=== PATIENT | female | born 1990 | race Two or more races ===

== ENCOUNTER 2023-09-30 09:31 | Emergency (ER) | payer MEDICAID, SELFPAY ==
--- NOTE | 2023-09-30 | ECG_ITS ---
Test Reason : sob,palpitations Blood Pressure : / mmHG Vent. Rate : 090 BPM Atrial Rate : 090 BPM P-R Int : 138 ms QRS Dur : 076 ms QT Int : 372 ms P-R-T Axes : 056 014 026 degrees QTc Int : 455 ms Normal sinus rhythm Normal ECG No previous ECGs available Referred By: Generic ED Physician Electronically Signed By:GALO DIGGS MD
--- NOTE | ~2023-09-30 | CT_ITS ---
EXAMINATION: CT ANGIOGRAM OF THE CHEST WITH AND WITHOUT CONTRAST (CT PULMONARY ANGIOGRAM FOR PE) CLINICAL INFORMATION: Reason for Exam elevated dimer, R/O PE COMPARISON: Same day chest radiograph TECHNIQUE: Prior to contrast administration, noncontrast localization images were obtained. Subsequently, multidetector volumetric imaging was performed from the thoracic inlet to below the diaphragms following the administration of 65 mL Omnipaque 350 intravenous contrast. No contrast reaction reported Sagittal, coronal, and MIP oblique sagittal reformatted images were obtained on the CT workstation, uploaded to PACS, and reviewed. This CT examination was performed using dose optimization techniques as appropriate, variously including the following: *Automated exposure control *Adjustment of mA and/or kV according to patient size (this includes techniques or standardized protocols for targeted exams where dose is matched to indication/reason for exam; i.e. extremities or head) *Use of iterative reconstruction technique Total exam dose-length product 221 mGy-cm FINDINGS: SYSTEMS INTEGRATION ADVISOR: Clear lungs. QUALITY OF STUDY/CONTRAST BOLUS: Satisfactory. PULMONARY ARTERIES: No pulmonary emboli. THORACIC AORTA: No aneurysm. LUNGS: Trachea and bronchi are patent. No consolidations, groundglass opacities or suspicious lung nodules. Mild dependent atelectasis. PLEURA: No pleural effusion or pneumothorax. MEDIASTINUM: Normal heart size. No pericardial effusion. No hilar or mediastinal lymphadenopathy. No evidence of septal bowing or right heart strain. CORONARY ARTERY CALCIFICATION: None visualized on this study. CHEST WALL/AXILLA: No axillary or internal mammary lymphadenopathy. Inverted right nipple, correlate clinically. OSSEOUS STRUCTURES: No acute or suspicious osseous abnormality. UPPER ABDOMEN: Enlarged low density liver CT/CT angio chest PE protocol IMPRESSION: No CT evidence of pulmonary thromboembolism. Enlarged fatty liver. VTE: negative
--- NOTE | ~2023-09-30 | XR_ITS ---
STUDY: Chest, left rib series, left foot and ankle INDICATION: Left chest pain, foot and ankle pain after fall COMPARISON: None TECHNIQUE: PA chest, 3 view left rib series, 3 view left foot, 3 view left ankle FINDINGS: Chest and left RIBS: Heart, mediastinum, pulmonary vessels and lung lebron within normal limits. No effusions or pneumothorax. 2 radiopaque densities are identified in the left lateral upper abdominal soft tissues but no displaced rib fractures are seen. Left left foot and ankle: No fracture or dislocation. Mortise is intact. Alignment and articulations are maintained. No focal soft tissue swelling, fracture or dislocation. XR/XR ankle LT min 3V IMPRESSION: No acute cardiopulmonary disease. 2 adjacent densities in the upper lateral abdominal soft tissues have densities similar to bone, but biopsy adjacent ribs appear intact with no evidence of displaced fractures. Correlate clinically. No acute bony pathology left foot and ankle.
--- NOTE | ~2023-09-30 | XR_ITS ---
STUDY: Chest, left rib series, left foot and ankle INDICATION: Left chest pain, foot and ankle pain after fall COMPARISON: None TECHNIQUE: PA chest, 3 view left rib series, 3 view left foot, 3 view left ankle FINDINGS: Chest and left RIBS: Heart, mediastinum, pulmonary vessels and lung lebron within normal limits. No effusions or pneumothorax. 2 radiopaque densities are identified in the left lateral upper abdominal soft tissues but no displaced rib fractures are seen. Left left foot and ankle: No fracture or dislocation. Mortise is intact. Alignment and articulations are maintained. No focal soft tissue swelling, fracture or dislocation. XR/XR foot LT min 3V IMPRESSION: No acute cardiopulmonary disease. 2 adjacent densities in the upper lateral abdominal soft tissues have densities similar to bone, but biopsy adjacent ribs appear intact with no evidence of displaced fractures. Correlate clinically. No acute bony pathology left foot and ankle.
--- NOTE | ~2023-09-30 | XR_ITS ---
STUDY: Chest, left rib series, left foot and ankle INDICATION: Left chest pain, foot and ankle pain after fall COMPARISON: None TECHNIQUE: PA chest, 3 view left rib series, 3 view left foot, 3 view left ankle FINDINGS: Chest and left RIBS: Heart, mediastinum, pulmonary vessels and lung lebron within normal limits. No effusions or pneumothorax. 2 radiopaque densities are identified in the left lateral upper abdominal soft tissues but no displaced rib fractures are seen. Left left foot and ankle: No fracture or dislocation. Mortise is intact. Alignment and articulations are maintained. No focal soft tissue swelling, fracture or dislocation. XR/XR ribs LT min 3V w CXR1V IMPRESSION: No acute cardiopulmonary disease. 2 adjacent densities in the upper lateral abdominal soft tissues have densities similar to bone, but biopsy adjacent ribs appear intact with no evidence of displaced fractures. Correlate clinically. No acute bony pathology left foot and ankle.
[2023-09-30 09:33] VITALS: BP 126/80; PULSE 109; RESP 20; TEMP 36.2; O2SAT 98; BMI 40.0
--- NOTE | 2023-09-30 09:44 | ED.GENADULT ---
HPI - General Adult General Chief complaint: General Medical Stated complaint: Chest pain/Fall last week Time Seen by Provider: 09/30/23 09:44 Source: patient and plain goods hemmer (kazakh) Mode of arrival: ambulatory Limitations: language barrier (kazakh) History of Present Illness ED Provider: SHELBY ALVAREZ PA-C HPI narrative: 33 year old female with no significant pmhx presents to the ED today for evaluation of left ankle pain s/p trip and fall 1 week ago. Reports rolling her ankle inward. Now has continued pain and swelling to the inner aspect of left ankle. Taking Tylenol at home with minimal relief. Last dose two days ago. She has been able to ambulate on the LLE with some discomfort. Denies fever/ chills, numbness/tingling/weakness of the LEs. Additionally, patient reports left sided chest pain x4-6 months with associated shortness of breath and palpitations, only present on lying down at night. She endorses left calf cramping x1 month. Denies recent travel or long car rides. Denies OCP use. admits to increased life stressors however does not wish to discuss. Reports following up with her PCP 12 days ago regarding these symptoms. At the time, she was diagnosed with iron deficiency anemia and has been taking iron supplements at home as directed. automatic shirring machine operator utilized throughout visit to communicate with patient. Related Data Previous Rx's ?Medication ?Instructions ?Recorded compression panty, 1x-2x #1 ea 09/30/23 naproxen 500 mg tablet 500 mg PO Q8-12H PRN pain (scale 09/30/23 score 1-3) #20 tabs Allergies Allergy/AdvReac Type Severity Reaction Status Date / Time No Known Allergies Allergy Verified 09/30/23 09:36 Review of Systems Review of Systems: Constitutional: No fever, chills, fatigue, night sweats, weight changes ENT/Mouth: No ear pain, hearing loss, nasal congestion, sinus pain, rhinorrhea, sore throat Eyes: No eye pain, swelling, redness, vision changes, discharge Cardio: No palpitations, [place], orthopnea, peripheral edema, +chest pain Pulm: No SOB, cough, sputum, wheezing, dyspnea, hemoptysis GI: No nausea, vomiting, hematemesis, abdominal pain, diarrhea, constipation, hematochezia, melena : No irregular bleeding, dysuria, frequency, urgency, hesitancy, hematuria, flank pain, urinary flow changes, urinary incontinence or retention MSK: No back pain, neck pain, joint pain, myalgias, +left ankle/ foot pain Skin: No lesions, rashes Neuro: No weakness, numbness, paresthesias, LOC, dizziness, headache Psych: No anxiety/panic, depression, SI/HI, AH/VH All other systems reviewed and are negative. [facility] Past Medical History Attestation statement: The following information was validated with the patient. Source: old records reviewed and nursing notes reviewed Social History Social History Smoked in Last 30 Days: No Advance Directives: No Advance Directives Information Provided: No Physical Exam ED Vital Signs: Vital Signs - 24 hr 09/30/23 09:33 09/30/23 11:30 09/30/23 13:12 Temperature 97.1 F 97.8 F 97.9 F Pulse Rate 109 H 68 65 Respiratory Rate 20 18 18 Blood Pressure 126/80 129/71 128/72 Pulse Oximetry 98 100 98 Oxygen Delivery Method Room Air Room Air Room Air 09/30/23 13:13 Temperature 97.9 F Pulse Rate 68 Respiratory Rate 18 Blood Pressure 128/72 Pulse Oximetry 98 Oxygen Delivery Method Room Air BMI result Body Mass Index 40.0 Const General: cooperative, healthy appearing, comfortable and no acute distress Orientation/consciousness: patient oriented x3 Limitations: no limitations [facility] Head: Yes normal to inspection, Yes No palpable skull fracture present, Yes normocephalic and Yes atraumatic Eyes General: appearance normal, both eyes and all related structures Conjunctivae: conjunctivae normal Sclerae: sclerae normal Pupils: Equal, round and reactive pupils present EOM: EOMs intact bilaterally Neck Neck: Yes normal visual inspection, Yes full ROM, Yes no lymphadenopathy and Yes no JVD Chest Chest palpation & inspection: normal inspection of the chest and normal palpation of entire chest wall Resp Effort & Inspection: normal respiratory effort and able to speak in complete sentences Auscultation: clear to auscultation bilaterally Cardio Jugular venous distension: no JVD Rate: regular rate Rhythm: regular rhythm GI Inspection: Yes normal to inspection Skin General skin exam: no rashes or lesions noted Neuro General: patient oriented x3 and gait normal Cranial nerves: Yes Equal, round and reactive pupils present Extrem Other: + noted swelling to medial aspect of left ankle with small area of ecchymosis. FROM intact to left ankle. no tenderness to palpation. no crepitus, fluctuance or warmth. no palpable deformity. 2+ dp/pt pulse intact. no calf tenderness bilatearlly. bilateral nonpitting edema. ambulating with steady gait. Course Course Course Narrative: CBC without leukocytosis or left shift. No anemia, H&H stable. Chemistry without acute electrolyte abnormality requiring intervention. Beta hCG undetectable. EKG showing NSR without evidence of acute ischemic changes. troponin flat. Given chronicity of symptoms > ACS unlikely. Given patient tachycardic on initial VS, cannot exclude PE. PERC 1. Dimer ordered. BNP wnl, no concern for fluid overload. 1104-- ddimer elevated to 1207 > Findings discussed with patient. CTA chest ordered to r/o PE. > xr left foot/ ankle without fracture or malalignment. > XR ribs w/ chest unremarkable. 1207-- CTA chest without evidence of VTE. There are incidental findings of enlarged fatty liver. Findings of elevated ddimer are nonspecific however may be related to chronic fatty liver. > I discussed all findings with patient. Etiology of patient's chest pain is unclear. advised follow up with pcp. will provide referral to classified copy control clerk for outpatient follow up. Patient has remained stable throughout ED visit today. Discussed worrisome signs and symptoms and when to return to the ED. All questions answered at this time. Patient is agreeable with disposition and stable for discharge. Medications Administered Discontinued Medications Generic Name Dose Route Start Last Admin Trade Name Freq PRN Reason Stop Dose Admin Sodium Chloride 1,000 mls @ 999 mls/hr 09/30/23 11:45 09/30/23 13:14 Ns IV 09/30/23 12:45 Infused .Q1H1M BUZZ Infusion Iohexol 65 ml 09/30/23 11:43 09/30/23 11:43 Iohexol 350 Mg/Ml 100 Ml Infus..Btl IV 09/30/23 11:44 65 ml ONCE ONE Administration Ketorolac Tromethamine 15 mg 09/30/23 11:25 09/30/23 11:31 Ketorolac Tromethamine 15 Mg/Ml Vial IVPUSH 09/30/23 11:26 15 mg ONCE ONE Administration Medical Decision Making Medical Decision Making MDM Narrative: 33 year old female with no significant pmhx presents to the ED today for evaluation of left ankle pain s/p trip and fall 1 week ago. Tachycardic to 109, vitals otherwise wnl. She is nontoxic appearing and in NAD. On exam of LLE, noted swelling to medial aspect of left ankle with small area of ecchymosis. FROM intact to left ankle. no tenderness to palpation. no crepitus, fluctuance or warmth. no palpable deformity. 2+ dp/pt pulse intact. no calf tenderness bilatearlly. bilateral nonpitting edema. ambulating with steady gait. RRR. Lungs are CTA bilaterally. Differential diagnosis includes ACS, arrhythmia, costochondritis, pleuritis, msk sprain/ strain, viral syndrome, pneumonia, ankle sprain/ strain, fracture. Lower suspicion for PE, effusion, rupture aneurysm, compartment syndrome, NV compromise, threat to limb. Plan for labs, ekg, cxr, and re-evaluation. Differential Diagnosis Differential Diagnoses: The differential diagnosis associated with the presentation includes as above. Admission/Observation Not indicated. Lab Data [facility] Lab Attestation statement: I reviewed the patient's lab results. as above. 09/30/23 09:47 09/30/23 09:47 Labs: Lab Results 09/30/23 09/30/23 Range/Units 09:47 10:35 WBC 9.6 (4.8-10.8) X10*3/uL RBC 4.68 (4.20-5.50) X10*6/uL Hgb 12.7 (12.0-16.0) g/dl Hct 39.0 (37.0-47.0) % MCV 83.3 (80.0-98.0) fL MCH 27.1 (27.0-33.0) pg MCHC 32.6 (31.0-35.0) g/dl RDW 15.9 (11.0-16.0) % Plt Count 336 (160-400) X10*3/uL MPV 9.7 (9.4-12.3) fL Immature Gran % (Auto) 0.5 H (0.0-0.4) % Neut % (Auto) 66.3 (45-73) % Lymph % (Auto) 23.1 (20-40) % [place] % (Auto) 8.9 (2-11) % Eos % (Auto) 0.7 (0-4) % Baso % (Auto) 0.5 (0-2) % Lymph # (Auto) 2.2 (1.2-4.9) X10*3/uL [place] # (Auto) 0.9 (0.1-1.2) X10*3/uL Eos # (Auto) 0.1 (0.0-0.4) X10*3/uL Baso # (Auto) 0.1 (0.0-0.2) X10*3/uL Abs Immat Gran (auto) 0.05 H (0.00-0.03) X10*3/uL Absolute Neuts (auto) 6.3 (2.0-8.3) x10*3/uL Absolute Nucleated RBC 0.000 (0.0-0.012) X10*3/uL Nucleated RBC % (auto) 0.0 (0.0-0.2) /100WBC D-Dimer High Sensitivty 1207 NG/ML Sodium 141 (135-145) mmol/L Potassium 4.5 (3.3-5.1) mmol/L Chloride 108 (96-108) mmol/L Carbon Dioxide 21 L (22-29) mmol/L Anion Gap 17 (12-20) BUN 21 H (9-16) mg/dL Creatinine 1.03 (0.5-1.4) mg/dL Estim Creat Clear Calc 79.1 Estimated GFR > 60 Random Glucose 86 (60-115) mg/dL Calcium 9.7 (8.4-10.2) mg/dL Magnesium 1.9 (1.6-2.6) mg/dL Troponin I High Sens < 2.7 (<3.5-17.0) ng/L B-Natriuretic Peptide < 10 (<100) pg/mL Beta HCG, Quant < 2 mIU/mL Independent Interpretation I performed an independent interpretation of an: EKG, Plain X-Ray and CT Scan Interpretation: EKG showing normal sinus rhythm with a rate of 90 beats per minute, QT 372, QTC 455, no acute ischemic changes or ST elevations. XR left ribs without obvious rib fracture, no consolidation or infiltrate, agree with radiologist's interpretation XR left ankle/ foot without fracture, agree with radiologist's interpretation. CTA chest with clot, agree with radiologist's interpretation. Radiology Impression Discussion of test interpretation with radiology: I have reviewed the radiologist's reading. Radiologist Impression: EXAMINATION: CT ANGIOGRAM OF THE CHEST WITH AND WITHOUT CONTRAST (CT PULMONARY ANGIOGRAM FOR PE) CLINICAL INFORMATION: Reason for Exam elevated dimer, R/O PE COMPARISON: Same day chest radiograph TECHNIQUE: Prior to contrast administration, noncontrast localization images were obtained. Subsequently, multidetector volumetric imaging was performed from the thoracic inlet to below the diaphragms following the administration of 65 mL Omnipaque 350 intravenous contrast. No contrast reaction reported Sagittal, coronal, and MIP oblique sagittal reformatted images were obtained on the CT workstation, uploaded to PACS, and reviewed. This CT examination was performed using dose optimization techniques as appropriate, variously including the following: *Automated exposure control *Adjustment of mA and/or kV according to patient size (this includes techniques or standardized protocols for targeted exams where dose is matched to indication/reason for exam; i.e. extremities or head) *Use of iterative reconstruction technique Total exam dose-length product 221 mGy-cm FINDINGS: RECESSING MACHINE OPERATOR: Clear lungs. QUALITY OF STUDY/CONTRAST BOLUS: Satisfactory. PULMONARY ARTERIES: No pulmonary emboli. THORACIC AORTA: No aneurysm. LUNGS: Trachea and bronchi are patent. No consolidations, groundglass opacities or suspicious lung nodules. Mild dependent atelectasis. PLEURA: No pleural effusion or pneumothorax. MEDIASTINUM: Normal heart size. No pericardial effusion. No hilar or mediastinal lymphadenopathy. No evidence of septal bowing or right heart strain. CORONARY ARTERY CALCIFICATION: None visualized on this study. CHEST WALL/AXILLA: No axillary or internal mammary lymphadenopathy. Inverted right nipple, correlate clinically. OSSEOUS STRUCTURES: No acute or suspicious osseous abnormality. UPPER ABDOMEN: Enlarged low density liver CT/CT angio chest PE protocol IMPRESSION: No CT evidence of pulmonary thromboembolism. Enlarged fatty liver. VTE: negative STUDY: Chest, left rib series, left foot and ankle INDICATION: Left chest pain, foot and ankle pain after fall COMPARISON: None TECHNIQUE: PA chest, 3 view left rib series, 3 view left foot, 3 view left ankle FINDINGS: Chest and left RIBS: Heart, mediastinum, pulmonary vessels and lung lebron within normal limits. No effusions or pneumothorax. 2 radiopaque densities are identified in the left lateral upper abdominal soft tissues but no displaced rib fractures are seen. Left left foot and ankle: No fracture or dislocation. Mortise is intact. Alignment and articulations are maintained. No focal soft tissue swelling, fracture or dislocation. XR/XR ribs LT min 3V w CXR1V IMPRESSION: No acute cardiopulmonary disease. 2 adjacent densities in the upper lateral abdominal soft tissues have densities similar to bone, but biopsy adjacent ribs appear intact with no evidence of displaced fractures. Correlate clinically. No acute bony pathology left foot and ankle. Independent Historian Clinical information obtained from an independent historian. History obtained from or confirmed by: Spouse () External Record Review External record reviewed: Inpatient record Prescription Management I considered prescription management with: Pain Medication Social Determinants Patient?s care significantly limited by Social Determinants of Health including: Other Social Determinant of Health Critical Care Time Critical Care Time Critical Care Time: No Discharge Plan Discharge Clinical Impression: Atypical chest pain, Left ankle sprain, Elevated d-dimer, Fatty liver Patient Disposition: Home, Self-Care Instructions: Liver Disease Diet (DC) Additional Instructions: Your blood work today is reassuring. Your xrays are unremarkable. Your EKG is normal. The CT scan of your chest does not demonstrate clot. It does show incidental finding of fatty liver. Please see attached instructions for appropriate diet changes. You may also follow up with your PCP regarding these findings. You likely have an ankle sprain. You were provided with an Antwan wrap for compression. Utilize rice therapy- rest, ice, compress, elevate. Compression stockings have also been sent to the pharmacy for you to wear while you are up and walking to help with your lower leg swelling. Naproxen is an anti-inflammatory that has been sent to your pharmacy for you to take as needed for pain/discomfort. Do not take this with other NSAIDs such as Motrin as this may cause increased risk of GI bleeding. Follow up with your primary care provider. Return with new or worsening symptoms. In the case of an emergency call 911. Prescriptions: New naproxen 500 mg tablet 500 mg PO Q8-12H PRN (Reason: pain (scale score 1-3)) Qty: 20 0RF (DME) compression panty, 1x-2x Misc See Rx Instructions .Route Qty: 1 0RF Rx Instructions: As directed Referrals: Adriana Arriaga NP [Primary Care Provider] - Interventions: ED Discharge Assessment Last Done: 09/30/23 13:13 Discharge Date/Time: 09/30/23 13:14 Print Language: [place]
[2023-09-30 09:52] LABS: MANUAL DIFF FLAG NO
[2023-09-30 09:54] LABS: Basophils Absolute Auto 0.1 X10*3/uL (0.0-0.2); Basophils Percent Auto 0.5 % (0-2); Eosinophils Absolute Auto 0.1 X10*3/uL (0.0-0.4); Eosinophils Percent Auto 0.7 % (0-4); Hemoglobin 12.7 g/dl (12.0-16.0); Imm Gran Abs Auto 0.05 X10*3/uL (0.00-0.03); Imm Gran Pct Auto 0.5 % (0.0-0.4); Lymphocytes Absolute Auto 2.2 X10*3/uL (1.2-4.9); Lymphocytes Percent Auto 23.1 % (20-40); Mean Corpuscular HGB Conc 32.6 g/dl (31.0-35.0); Mean Corpuscular Hemoglobin 27.1 pg (27.0-33.0); Mean Corpuscular Volume 83.3 fL (80.0-98.0); Mean Platelet Volume 9.7 fL (9.4-12.3); Monocytes Absolute Auto 0.9 X10*3/uL (0.1-1.2); Monocytes Percent Auto 8.9 % (2-11); Neutrophils Absolute Auto 6.3 x10*3/uL (2.0-8.3); Neutrophils Percent Auto 66.3 % (45-73); Platelet Count 336 X10*3/uL (160-400); Red Blood Count 4.68 X10*6/uL (4.20-5.50); Red Cell Distribution Width 15.9 % (11.0-16.0); White Blood Count 9.6 X10*3/uL (4.8-10.8)
--- NOTE | 2023-09-30 10:24 | PC.NURSE ---
Pt comes from home for rolling her ankle a week ago walking home from the [employer]. She has been walking on it for the past week, able to flex and extend the ankle. + pedal pulses, swelling noted in her left ankle/foot and bruising. She stated she was able to walk home on the ankle but the next day was unable to bare weight. She is also endorsing chest pain with SOB and calf pain that started before the fall. She states the calf pain feels like cramping and shes had it for about 2 months now. She also states the chest pain started 4-6 months ago but was worse last night, nothing makes the chest pain better/worse it's constant. Denies n/v/dizziness, she has been taking naproxen for her ankle pain, last dose was last sunday. Significant other at bedside, resting quietly in bed, call kinsey within reach, awaiting further orders at this time.
--- NOTE | 2023-09-30 10:32 | PC.NURSE ---
Pt comes from home for rolling her ankle a week ago walking home from the [employer]. She has been walking on it for the past week, able to flex and extend the ankle. + pedal pulses, swelling noted in her left ankle/foot and bruising. She stated she was able to walk home on the ankle but the next day was unable to bare weight. She is also endorsing chest pain with SOB and calf pain that started before the fall. She states the calf pain feels like cramping and shes had it for about 2 months now. She also states the chest pain started 4-6 months ago but was worse last night, nothing makes the chest pain better/worse it's constant. Denies n/v/dizziness, she has been taking tylenol for her ankle pain, last dose was last sunday. Significant other at bedside, resting quietly in bed, call kinsey within reach, awaiting further orders at this time.
[2023-09-30 10:47] LABS: Anion Gap 17 (12-20); Blood Urea Nitrogen 21 mg/dL (9-16); Calcium 9.7 mg/dL (8.4-10.2); Carbon Dioxide 21 mmol/L (22-29); Chloride 108 mmol/L (96-108); Creatinine Clr Calc Pharmacy 79.1; Estimated Glomerular Filt Rate > 60; Glucose Random 86 mg/dL (60-115); Magnesium 1.9 mg/dL (1.6-2.6); Potassium 4.5 mmol/L (3.3-5.1); Sodium 141 mmol/L (135-145)
[2023-09-30 10:50] LABS: D Dimer High Sensitivity 1207 NG/ML
[2023-09-30 10:50] LABS: HCG Quantitative < 2 mIU/mL; Troponin-I High Sensitivity < 2.7 ng/L (<3.5-17.0)
[2023-09-30 11:30] VITALS: BP 129/71; PULSE 68; RESP 18; TEMP 36.6; O2SAT 100
[2023-09-30] MEDS: Ketorolac Tromethamine 15 MG/ML VIAL IVPUSH (11:31)
[2023-09-30 11:36] LABS: B Type Natriuretic Peptide < 10 pg/mL (<100)
[2023-09-30] MEDS: iohexoL 350 MG/ML 100 ML INFUS..BTL 65 ML IV (11:43)
[2023-09-30] MEDS: 0.9 % Sodium Chloride 1,000 ML 999 ML IV (11:50)
[2023-09-30 13:12] VITALS: BP 128/72; PULSE 65; RESP 18; TEMP 36.6; O2SAT 98
[2023-09-30 13:13] VITALS: BP 128/72; PULSE 68; RESP 18; TEMP 36.6; O2SAT 98
== END 2023-09-30 13:14 | disposition home or self-care (01) ==
PROVIDERS: Physician Assistant Medical; Emergency Provider Emergency Medicine; PCP Nurse Practitioner
DX: S93.402A Sprain of unspecified ligament of left ankle, initial encounter (principal); R07.81 Pleurodynia; M25.572 Pain in left ankle and joints of left foot; K76.0 Fatty (change of) liver, not elsewhere classified; R06.02 Shortness of breath; R07.89 Other chest pain; R00.2 Palpitations; D50.9 Iron deficiency anemia, unspecified; W50.2XXA Accidental twist by another person, initial encounter; Y93.01 Activity, walking, marching and hiking; Y92.9 Unspecified place or not applicable; Y99.8 Other external cause status; Z79.899 Other long term (current) drug therapy
CPT/HCPCS: 36415; 71101; 71275; 73610; 73630; 80048; 83735; 83880; 84484; 84702; 85025; 85379; 93005; 96360; 96372; 99284; 99285; J1885; Q9967

== ENCOUNTER → 2023-09-30 09:39 | Outpatient (BNV) | payer MEDICAID, SELFPAY | PROVIDERS: Emergency Provider Emergency Medicine; PCP Nurse Practitioner; Visit Provider Internal Medicine Cardiovascular Disease | DX: R00.2 Palpitations (principal); R06.02 Shortness of breath | CPT/HCPCS: 93010 ==

== ENCOUNTER 2023-11-18 15:23 | Emergency (ER) | payer MEDICAID, SELFPAY ==
[2023-11-18 16:02] VITALS: BP 120/77; PULSE 111; RESP 18; TEMP 37.1; O2SAT 100; BMI 40.2
--- NOTE | 2023-11-18 16:02 | ED_ITS ---
HPI - URI/Sore Throat General Chief Complaint: Upper Respiratory Symptoms Stated Complaint: feels sick Time Seen by Provider: 11/18/23 18:15 Source: patient, RN notes reviewed and old records reviewed Mode of arrival: ambulatory History of Present Illness ED Provider: Melissa Ward PA-C [facility] Narrative: 33-year-old female with no significant past medical history presenting to the ED complaining of sore throat x yesterday, aches/myalgias, congestion, cough, chills, and headache x today. Denies fever, sick contacts, travel SOB/CP Related Data Previous Rx's ?Medication ?Instructions ?Recorded compression panty, 1x-2x #1 ea 09/30/23 naproxen 500 mg tablet 500 mg PO Q8-12H PRN pain (scale 09/30/23 score 1-3) #20 tabs Allergies Allergy/AdvReac Type Severity Reaction Status Date / Time No Known Allergies Allergy Verified 11/18/23 16:07 Review of Systems Review of Systems: Yes all other systems are reviewed and are negative Constitutional: Constitutional: Reports as per [facility] Past Medical History Attestation statement: The following information was validated with the patient. Source: old records reviewed Social History Social History Advance Directives: No Advance Directives Information Provided: No Physical Exam Vital Signs: Vital Signs: Last Vital Signs Temp 99 F 11/18/23 18:50 Pulse 88 11/18/23 18:50 Resp 19 11/18/23 18:50 BP 124/88 11/18/23 18:50 Pulse Ox 97 11/18/23 18:50 O2 Del Method Room Air 11/18/23 18:50 BMI result Body Mass Index 40.2 Const: General: cooperative, healthy appearing and no acute distress Orientation/consciousness: patient oriented x3 Limitations: no limitations HEENT: Head: Yes normal to inspection and Yes atraumatic Ears: hearing grossly normal bilaterally General nose exam: Normal external nose present Face and sinus: Yes normal facial exam Eyes: General: appearance normal, both eyes and all related structures EOM: EOMs intact bilaterally Neck: Neck: Yes normal visual inspection and Yes no meningeal signs Resp: Effort & Inspection: normal respiratory effort and no respiratory distress Auscultation: clear to auscultation bilaterally Cardio: Rate: regular rate Heart sounds: S1 normal heart sound present and S2 normal heart sound present Skin: Rashes: no rashes Wounds: no wounds Neuro: General: patient oriented x3, tone normal and no meningeal signs C ranial nerves: Yes CN's II-XII intact bilaterally Gait exam (Neuro): Normal gait present Extrem: General: Yes normal to inspection Course Course Course Narrative: This is a Rapid Medical Exam performed in triage by Melissa Ward PA-C. Full HPI, ROS and PE to be performed by primary ED provider. 33 yo F presenting to the ED c/o sore throat x yesterday and body aches, congestion, cough, chills and WATKINS x today. denies fever, sick contacts, travel PE: lungs CTA, mild posterior oropharyngeal erythema, uvula midline, no exudates Plan: viral testing, rapid strep -COVID-19 positive Results discussed with patient including worrisome signs and symptoms and strict return precautions, and when to return to the emergency department. They verbalized understanding and feel safe for discharge at this time. Medical Decision Making Medical Decision Making MDM Narrative: 33-year-old female with no significant past medical history presenting to the ED complaining of sore throat x yesterday, aches/myalgias, congestion, cough, chills, and headache x today. On exam initially tachycardic, NAD, nontoxic appearing lungs CTA, mild posterior oropharyngeal erythema, uvula midline, talking complete sentences. Concern for viral illness or strep pharyngitis heard no evidence of RESEARCH TECH or retropharyngeal abscess. Lower suspicion for pneumonia, ACS or PE Plan: Rapid strep, viral testing Please refer to course for remaining clinical decision making, interpretation of labs/imaging results, and discussions with consultants and/or family members. Differential Diagnosis Differential Diagnoses: The differential diagnosis associated with the presentation includes As above Lab Data MDM Lab Attestation statement: I reviewed the patient's lab results. Labs: Lab Results 11/18/23 Range/Units 17:32 Influenza Type A (PCR) NEGATIVE (Negative) Influenza Type B (PCR) NEGATIVE (Negative) RSV RNA Qual (PCR) NEGATIVE (Negative) SARS-CoV-2 RNA (RT-PCR) POSITIVE A (Negative) S. pyogenes GrpA SVITLANA Negative (Negative) External Record Review External record reviewed: Inpatient record, Office record, Outpatient record, Prior outpatient labs, Prior outpatient radiology, Primary care record and Outside ED record Tests considered The following testing was considered but not selected: As above Discharge Plan Discharge Clinical Impression: COVID-19 Patient Disposition: Home, Self-Care Instructions: COVID-19 (Coronavirus Disease 2019) (ED) Additional Instructions: YOU HAVE COVID-19 At this time you will be okay for discharge. Please self isolate for 5 days. Do not expose yourself to others. You may not go to work or school. Please continue to follow cold instructions and wash your hands frequently. You may take Tylenol / Motrin as directed on the bottle for pain or fever. If you have constant or persistent shortness of breath, fever unresolved with medications, chest pain, or your unable to eat or drink please return to the ED CDC Guidelines for home isolation: - Stay away from others - WEAR A MASK if you are sick AND STAY HOME - Cover your mouth and nose with a tissue when you cough or sneeze. Dispose of tissues in a lined trash can and wash your hands immediately with soap and water for at least 20 seconds. If soap and water are not available, clean hands with alcohol-based hand wildlife conservation professor that contains at least 60% alcohol. - Clean your hands often with soap and water for at least 20 seconds - Avoid touching your eyes, nose and mouth with unwashed hands - Do not share dishes, drinking glasses, cups, eating utensils, towels, or bedding with other people in your home. After using these items, wash them thoroughly with soap and water or put in the check grader. - Clean high-touch surfaces in your isolation area ( sick room and bathroom) every day; let a caregiver clean and disinfect high-touch surfaces in other areas of the home. Clean the area or item with soap and water or another detergent if it is dirty. Then, use a household disinfectant. - Limit contact with pets and animals: If you must care for a pet, wash your hands before and after interacting with them) Prescriptions: No Action naproxen 500 mg tablet 500 mg PO Q8-12H PRN (Reason: pain (scale score 1-3)) Qty: 20 0RF (DME) compression panty, 1x-2x Misc See Rx Instructions .Route Qty: 1 0RF Rx Instructions: As directed Referrals: Adriana Arriaga NP [Primary Care Provider] - Stand Alone Forms: Work/School Release Interventions: ED Discharge Assessment Last Done: 11/18/23 18:50 Discharge Date/Time: 11/18/23 18:51 Print Language: Wallisian
[2023-11-18 17:50] LABS: IDNOW Serial# 08D9AD1C; Strep A Nucleic Acid Negative (Negative)
[2023-11-18 18:15] LABS: Influenza A PCR NEGATIVE (Negative); Influenza B PCR NEGATIVE (Negative); Resp Syncy Virus RNA Qual PCR NEGATIVE (Negative); SARS COV2 PCR INHOUSE POSITIVE (Negative)
[2023-11-18 18:49] VITALS: BP 124/88; PULSE 88; RESP 19; TEMP 37.2; O2SAT 97
[2023-11-18 18:50] VITALS: BP 124/88; PULSE 88; RESP 19; TEMP 37.2; O2SAT 97
== END 2023-11-18 18:51 | disposition home or self-care (01) ==
PROVIDERS: Physician Assistant; Emergency Provider Emergency Medicine Emergency Medical Services; PCP Nurse Practitioner
DX: U07.1 COVID-19 (principal); J02.9 Acute pharyngitis, unspecified
CPT/HCPCS: 0241U; 87651; 99282

== ENCOUNTER 2023-12-05 15:00 | Emergency (ER) | payer MEDICAID, SELFPAY ==
--- NOTE | 2023-12-05 15:01 | ECG_ITS ---
Test Reason : CHEST PAIN Blood Pressure : / mmHG Vent. Rate : 088 BPM Atrial Rate : 088 BPM P-R Int : 140 ms QRS Dur : 078 ms QT Int : 366 ms P-R-T Axes : 057 014 013 degrees QTc Int : 442 ms Normal sinus rhythm Normal ECG When compared with ECG of 30-SEP-2023 09:39, No significant change was found Referred By: Cielo Tsai Electronically Signed By:BREEZY HUBBARD
--- NOTE | 2023-12-05 15:17 | ED_ITS ---
HPI - General Adult General Chief complaint: Chest Pain Stated complaint: CP Time Seen by Provider: 12/06/23 02:02 Source: patient Mode of arrival: ambulatory Limitations: no limitations History of Present Illness ED Provider: martha VENTURA narrative: Patient no significant past medical history complaining of left-sided chest pain on the breast for last few days reproducible increases on movement vomited 3 times today Related Data Previous Rx's ?Medication ?Instructions ?Recorded compression panty, 1x-2x #1 ea 09/30/23 naproxen 500 mg tablet 500 mg PO Q8-12H PRN pain (scale 09/30/23 score 1-3) #20 tabs ibuprofen 600 mg tablet 600 mg PO Q6H PRN fever or pain 12/06/23 #30 tabs Allergies Allergy/AdvReac Type Severity Reaction Status Date / Time No Known Allergies Allergy Verified 12/05/23 15:20 Review of Systems 2 Review of Systems: Yes all other systems are reviewed and are negative PMFSH Social History Social History Advance Directives: No Advance Directives Information Provided: No Physical Exam ED Vital Signs: BMI result Body Mass Index 38.7 Appearance: Alert. Oriented X3. No acute distress. Eyes: PERRLA, No Nystagmus ENT: Pharynx normal. Oral Mucosa moist Neck: Normal inspection. Neck supple. CVS: Normal heart rate and rhythm. Pulses normal. Respiratory: No respiratory distress. Equal air entry bilateral, no wheezing/rales/rhonchi reproducible tenderness left anterior chest Abdomen: Soft and nontender. Bowel sounds are present, no mass palpable, no CVA tenderness Skin: Skin warm and dry. Normal skin color. Normal skin turgor. Extremities: No lower extremity edema. No calf tenderness Neuro: Oriented X 3. No motor deficit. No sensory deficit.No cerebellar signs , cranial nerves II-XII intact Course Course Course Narrative: This is a rapid medical exam performed by Claribel Tsai NP: Additional HPI, ROS, PE not included below will be deferred to primary provider. Patient is a 33-year-old female presenting to the ED with complaint of constant chest pain under left breast which began yesterday. At times palpitations with ambulation. Plan: EKG, labs Medications Administered Discontinued Medications Generic Name Dose Route Start Last Admin Trade Name Freq PRN Reason Stop Dose Admin Ibuprofen 600 mg 12/06/23 02:24 12/06/23 03:28 Ibuprofen 600 Mg Tablet PO 12/06/23 02:25 600 mg ONCE ONE Administration Medical Decision Making Medical Decision Making [facility] Narrative: Patient has atypical musculoskeletal chest pain heart score of 0 cardiac enzymes and EKG negative will discharge patient home Differential Diagnosis Differential Diagnoses: The differential diagnosis associated with the presentation includes Lab Data [facility] Lab Attestation statement: I reviewed the patient's lab results. 12/05/23 16:36 12/05/23 16:36 Labs: Lab Results 12/05/23 Range/Units 16:36 WBC 10.6 (4.8-10.8) X10*3/uL RBC 5.04 (4.20-5.50) X10*6/uL Hgb 13.5 (12.0-16.0) g/dl Hct 41.7 (37.0-47.0) % MCV 82.7 (80.0-98.0) fL MCH 26.8 L (27.0-33.0) pg MCHC 32.4 (31.0-35.0) g/dl RDW 15.7 (11.0-16.0) % Plt Count 463 H D (160-400) X10*3/uL MPV 9.5 (9.4-12.3) fL Immature Gran % (Auto) 0.4 (0.0-0.4) % Neut % (Auto) 70.3 (45-73) % Lymph % (Auto) 20.4 (20-40) % [place] % (Auto) 7.4 (2-11) % Eos % (Auto) 0.9 (0-4) % Baso % (Auto) 0.6 (0-2) % Lymph # (Auto) 2.2 (1.2-4.9) X10*3/uL [place] # (Auto) 0.8 (0.1-1.2) X10*3/uL Eos # (Auto) 0.1 (0.0-0.4) X10*3/uL Baso # (Auto) 0.1 (0.0-0.2) X10*3/uL Abs Immat Gran (auto) 0.04 H (0.00-0.03) X10*3/uL Absolute Neuts (auto) 7.5 (2.0-8.3) x10*3/uL Absolute Nucleated RBC 0.000 (0.0-0.012) X10*3/uL Nucleated RBC % (auto) 0.0 (0.0-0.2) /100WBC PT 11.7 (11.1-13.3) SEC INR 1.0 (0.9-1.1) Sodium 140 (135-145) mmol/L Potassium 4.1 (3.3-5.1) mmol/L Chloride 105 (96-108) mmol/L Carbon Dioxide 25 (22-29) mmol/L Anion Gap 14 (12-20) BUN 14 (9-16) mg/dL Creatinine 0.92 (0.5-1.4) mg/dL Estim Creat Clear Calc 86.8 Estimated GFR > 60 Random Glucose 85 (60-115) mg/dL Calcium 9.6 (8.4-10.2) mg/dL Total Bilirubin 0.3 (0.0-1.0) mg/dL AST 17 (5-31) U/L ALT 18 (0-31) U/L Alkaline Phosphatase 101 (39-117) U/L Troponin I High Sens < 2.7 (<3.5-17.0) ng/L Total Protein 7.5 (6.5-8.0) g/dL Albumin 4.3 (3.5-5.0) g/dL Beta HCG, Quant < 2 mIU/mL Independent Interpretation I performed an independent interpretation of an: EKG Interpretation: Normal sinus rhythm heart rate 88 beats per minute normal interval normal axis no acute STT wave changes Discharge Plan Discharge Clinical Impression: Atypical chest pain, Costalchondritis Patient Disposition: Home, Self-Care Instructions: Chest Wall Pain (ED) Additional Instructions: Take ibuprofen for pain Your chest pain is from cartilage inflammation not from the heart Prescriptions: New ibuprofen 600 mg tablet 600 mg PO Q6H PRN (Reason: fever or pain) Qty: 30 0RF No Action naproxen 500 mg tablet 500 mg PO Q8-12H PRN (Reason: pain (scale score 1-3)) Qty: 20 0RF (DME) compression panty, 1x-2x Misc See Rx Instructions .Route Qty: 1 0RF Rx Instructions: As directed Interventions: ED Discharge Assessment Last Done: 12/06/23 03:43 Discharge Date/Time: 12/06/23 03:44 Print Language: Tongan
[2023-12-05 15:18] VITALS: BP 122/76; PULSE 105; RESP 18; TEMP 36.8; O2SAT 96; BMI 38.7
[2023-12-05 16:44] LABS: MANUAL DIFF FLAG NO
[2023-12-05 16:47] LABS: Basophils Absolute Auto 0.1 X10*3/uL (0.0-0.2); Basophils Percent Auto 0.6 % (0-2); Eosinophils Absolute Auto 0.1 X10*3/uL (0.0-0.4); Eosinophils Percent Auto 0.9 % (0-4); Hematocrit 41.7 % (37.0-47.0); Hemoglobin 13.5 g/dl (12.0-16.0); Imm Gran Abs Auto 0.04 X10*3/uL (0.00-0.03); Imm Gran Pct Auto 0.4 % (0.0-0.4); Lymphocytes Absolute Auto 2.2 X10*3/uL (1.2-4.9); Lymphocytes Percent Auto 20.4 % (20-40); Mean Corpuscular HGB Conc 32.4 g/dl (31.0-35.0); Mean Corpuscular Hemoglobin 26.8 pg (27.0-33.0); Mean Corpuscular Volume 82.7 fL (80.0-98.0); Mean Platelet Volume 9.5 fL (9.4-12.3); Monocytes Absolute Auto 0.8 X10*3/uL (0.1-1.2); Monocytes Percent Auto 7.4 % (2-11); Neutrophils Absolute Auto 7.5 x10*3/uL (2.0-8.3); Neutrophils Percent Auto 70.3 % (45-73); Platelet Count 463 X10*3/uL (160-400); Red Blood Count 5.04 X10*6/uL (4.20-5.50); Red Cell Distribution Width 15.7 % (11.0-16.0); White Blood Count 10.6 X10*3/uL (4.8-10.8)
[2023-12-05 17:03] LABS: Prothrombin Time 11.7 SEC (11.1-13.3)
[2023-12-05 17:06] LABS: Alanine Aminotransferase 18 U/L (0-31); Albumin Level 4.3 g/dL (3.5-5.0); Alkaline Phosphatase 101 U/L (39-117); Anion Gap 14 (12-20); Aspartate Amino Transferase 17 U/L (5-31); Bilirubin Total 0.3 mg/dL (0.0-1.0); Blood Urea Nitrogen 14 mg/dL (9-16); Calcium 9.6 mg/dL (8.4-10.2); Carbon Dioxide 25 mmol/L (22-29); Chloride 105 mmol/L (96-108); Creatinine Clr Calc Pharmacy 86.8; Estimated Glomerular Filt Rate > 60; Glucose Random 85 mg/dL (60-115); Potassium 4.1 mmol/L (3.3-5.1); Sodium 140 mmol/L (135-145); Total Protein 7.5 g/dL (6.5-8.0)
[2023-12-05 17:07] LABS: HCG Quantitative < 2 mIU/mL; Troponin-I High Sensitivity < 2.7 ng/L (<3.5-17.0)
[2023-12-06 01:55] VITALS: BP 118/70; PULSE 84; RESP 16; TEMP 36.8; O2SAT 98
--- NOTE | 2023-12-06 02:03 | MHC.EDTECH ---
This Tech assumed care of this pt upon arrival. pt changed over into a hospital gown and placed on a potline monitor. at bedside
[2023-12-06] MEDS: Ibuprofen 600 MG TABLET PO (03:28)
[2023-12-06 03:43] VITALS: BP 118/70; PULSE 84; RESP 16; TEMP 36.8; O2SAT 98
== END 2023-12-06 03:44 | disposition home or self-care (01) ==
PROVIDERS: Registered Nurse Emergency; Emergency Provider Internal Medicine
DX: R07.89 Other chest pain (principal); M94.0 Chondrocostal junction syndrome [Tietze]
CPT/HCPCS: 36415; 80053; 84484; 84702; 85025; 85610; 93005; 99283; 99284

== ENCOUNTER 2025-02-16 10:37 | Emergency (ER) | payer MEDICAID, SELFPAY ==
[2025-02-16 11:11] VITALS: BP 133/65; PULSE 83; RESP 18; TEMP 36.6; O2SAT 100; BMI 38.7
--- NOTE | 2025-02-16 11:14 | ED_ITS ---
HPI - General Adult General Chief complaint: Headache Stated complaint: Headache Time Seen by Provider: 02/16/25 12:14 Source: patient Mode of arrival: ambulatory Limitations: language barrier ( [place] speaking, [facility] [place] job used) History of Present Illness ED Provider: Dr. Sriram Epstein HPI narrative: 34-year-old female who presents to the emergency department for evaluation of intermittent, left-sided headache with pain behind her left eye. Patient states the pain is a constant, throbbing pain which is 8/10 at its worst. Patient had associated nausea but no vomiting. She denied fever, chills, chest pain, shortness of breath , neck pain. she states she has had similar pain in the past. Patient took Tylenol with no relief for pain. Related Data Previous Rx's ?Medication ?Instructions ?Recorded compression panty, 1x-2x #1 ea 09/30/23 naproxen 500 mg tablet 500 mg PO Q8-12H PRN pain (s maury 09/30/23 score 1-3) #20 tabs ibuprofen 600 mg tablet 600 mg PO Q6H PRN fever or p ain 12/06/23 #30 tabs pxecmsq-oxazbmetrakib-wjlhppyv 250 1 tab PO Q4-6H PRN headache #10 02/16/25 mg-250 mg-65 mg tablet (Excedrin tabs Migraine) diphenhydramine HCl 25 mg tablet 50 mg (2 x 25 mg) PO Q6-8H PRN 02/16/25 (Benadryl Allergy) headache #10 tabs metoclopramide HCl 10 mg tablet 10 mg PO Q8H PRN heada jana #9 tabs 02/16/25 (Reglan) Allergies Allergy/AdvReac Type Severity Reaction Status Date / Time No Known Allergies Allergy Verified 02/16/25 11:12 Review of Systems 2 Review of Systems: Yes all other systems are reviewed and are negative PMFSH Social History Social History Advance Directives: No Advance Directives Information Provided: Yes Do you have a plan to hurt others: No Plan Physical Exam ED Vital Signs: Vital Signs - 24 hr 02/16/25 11:11 Temperature 98 F Pulse Rate 83 Respiratory Rate 18 Blood Pressure 133/65 Pulse Oximetry 100 Oxygen Delivery Method Room Air BMI result Body Mass Index 38.7 vital signs were normal Exam: General: Awake, alert in no distress Head: Normocephalic, atraumatic EENT: PERRL, sclera and conjunctiva are normal, mouth with no erythema or exudates Neck: Supple, no adenopathy Lung: breath sounds symmetric, no wheezing, no rales and no rhonchi Chest: symmetric movement, nontender Heart: regular rate and rhythm, normal S1, S2 no murmurs or rubs Abdomen: soft, non-tender, nondistended, normal bowel sounds Back: no vertebral tenderness, no CVAT Extremities: no deformities, moves all extremities symmetrically, no edema Neuro: Awake, alert, oriented, normal speech, cranial nerves 2-12 intact, moves all extremities symmetrically Psych: Pleasant, cooperative Course Course Course Narrative: This is a rapid medical exam performed by Claribel Tsai NP: Additional HPI, ROS, PE not included below will be deferred to primary provider. Patient is a 34-year-old [place]ian-speaking female presenting to the emergency department with complaint of headache with associated left-sided eye and ear pain for the past few months. Rates at 8/10. Reports history of similar headaches in the past. Plan: Labs Medications Administered Discontinued Medications Generic Name Dose Route Start Last Admin Trade Name Freq PRN Reason Stop Dose Admin Diphenhydramine HCl 25 mg 02/16/25 12:44 02/16/25 13:05 Diphenhydramine Hcl 50 Mg/Ml Vial IVPUSH 02/16/25 12:45 25 mg ONCE ONE Administration Ketorolac Tromethamine 30 mg 02/16/25 12:44 02/16/25 13:05 Ketorolac Tromethamine 30 Mg/Ml Vial IVPUSH 02/16/25 12:45 30 mg ONCE ONE Administration Metoclopramide HCl 10 mg 02/16/25 12:44 02/16/25 13:05 Metoclopramide Hcl 10 Mg/2 Ml Vial IVPUSH 02/16/25 12:45 10 mg ONCE ONE Administration Medical Decision Making Medical Decision Making [facility] Narrative: 34-year-old female who presents to the emergency department for evaluation of intermittent, left-sided headache with pain behind her left eye associated with nausea, review systems negative, patient has had similar headaches in the past. Pain was a of 10 at the time my evaluation. Vital signs were normal neurologic exam is unremarkable. Differential diagnosis: Includes but is not limited to Intracranial bleed, meningitis, migraine headache, nonspecific headache, giant cell arteritis, anemia Course: My interpretation patient's laboratory evaluation is as follows: Mild, normocytic anemia with an H&H of 11.1 and 35.8. ESR normal 16. CMP was unremarkable. CRP minimally elevated 0.52. Beta-hCG below detectable limits. Given her relatively normal ESR and CRP I doubt that she has giant cell arteritis verses meningitis. Patient most likely has undiagnosed migraine syndrome and I did discuss this with the patient. The patient was treated with Toradol 30 mg IV, metoclopramide 10 mg IV and diphenhydramine 25 mg IV with significant improve her pain. The patient's pain completely resolved by the time she was discharged. I did discuss migraine syndrome with the patient . Patient was prescribed following medications take every 6 hours as needed for headaches: Metoclopramide 10 mg, diphenhydramine 50 mg, and Excedrin migraine 2 tablets. Patient was given printed and verbal instructions and discharged home. Differential Diagnosis Differential Diagnoses: The differential diagnosis associated with the presentation includes ( see above) Admission/Observation Consideration of admission/observation: Escalation of care including admission/observation considered ( yes) Lab Data MDM Lab Attestation statement: I reviewed the patient's lab results. 02/16/25 11:28 02/16/25 11:28 Labs: Lab Results 02/16/25 Range/Units 11:28 WBC 9.0 (4.8-10.8) X10*3/uL RBC 4.36 (4.20-5.50) X10*6/uL Hgb 11.1 L (12.0-16.0) g/dl Hct 35.8 L (37.0-47.0) % MCV 82.1 (80.0-98.0) fL MCH 25.5 L (27.0-33.0) pg MCHC 31.0 (31.0-35.0) g/dl RDW 15.7 (11.0-16.0) % Plt Count 360 (160-400) X10*3/uL MPV 10.0 (9.4-12.3) fL Immature Gran % (Auto) 0.7 H (0.0-0.4) % Neut % (Auto) 68.5 (45-73) % Lymph % (Auto) 22.3 (20-40) % [place] % (Auto) 7.0 (2-11) % Eos % (Auto) 0.8 (0-4) % Baso % (Auto) 0.7 (0-2) % Lymph # (Auto) 2.0 (1.2-4.9) X10*3/uL [place] # (Auto) 0.6 (0.1-1.2) X10*3/uL Eos # (Auto) 0.1 (0.0-0.4) X10*3/uL Baso # (Auto) 0.1 (0.0-0.2) X10*3/uL Abs Immat Gran (auto) 0.06 H (0.00-0.03) X10*3/uL Absolute Neuts (auto) 6.2 (2.0-8.3) x10*3/uL Absolute Nucleated RBC 0.000 (0.0-0.012) X10*3/uL Nucleated RBC % (auto) 0.0 (0.0-0.2) /100WBC ESR 16 (0-20) MM/HR Sodium 142 (135-145) mmol/L Potassium 4.6 (3.3-5.1) mmol/L Chloride 112 H (96-108) mmol/L Carbon Dioxide 25 (22-29) mmol/L Anion Gap 10 L (12-20) BUN 10 (9-16) mg/dL Creatinine 0.82 (0.5-1.4) mg/dL Estim Creat Clear Calc 100.5 Estimated GFR > 60 Random Glucose 90 (60-115) mg/dL Calcium 8.9 D (8.4-10.2) mg/dL Magnesium 1.9 (1.6-2.6) mg/dL Total Bilirubin 0.2 (0.0-1.0) mg/dL AST 25 (5-31) U/L ALT 16 (0-31) U/L Alkaline Phosphatase 101 (39-117) U/L C-Reactive Protein 0.52 H (< or = 0.50) mg/dL Total Protein 6.5 (6.5-8.0) g/dL Albumin 4.0 (3.5-5.0) g/dL Beta HCG, Quant < 2 mIU/mL Prescription Management I considered prescription management with: Pain Medication ( patient was prescribed the following medications for her migraine syndrome: Metoclopramide, diphenhydramine, and Excedrin migraine) Discharge Plan Discharge Clinical Impression: Headache Patient Disposition: Home, Self-Care Instructions: General Headache (ED) Additional Instructions: You have been evaluated in the Emergency Department today for headache. Your evaluation did not show evidence of medical conditions requiring emergent intervention at this time, and your pain improved with medication in the ED. Sometimes it is difficult to explain the cause of headache but the negative workup today is reassuring. I want you to take the following 3 medications together every 6 hours as needed for headache, nausea or vomiting. ? - Reglan 10 mg - Benadryl 50 mg - Excedrin migraine After you take these medications, lie down in a dark quiet room and try to fall asleep. ?These medications will make you sleepy, do not drive or work after taking these medications. Please follow up with your primary care physician within two days. Return to the Emergency Department if you experience worsening or uncontrolled pain, vision changes, recurrent vomiting, difficulty with normal activities, abnormal behavior, difficulty walking, numbness, weakness, or any other concerning symptoms. Prescriptions: New metoclopramide HCl [Reglan] 10 mg tablet 10 mg PO Q8H PRN (Reason: headache) Qty: 9 0RF diphenhydramine HCl [Benadryl Allergy] 25 mg tablet 50 mg PO Q6-8H PRN (Reason: headache) Qty: 10 0RF anfdqdk-eypozaxdkyyxk-muuodayi [Excedrin Migraine] 250-250-65 mg tablet 1 tab PO Q4-6H PRN (Reason: headache) Qty: 10 0RF No Action naproxen 500 mg tablet 500 mg PO Q8-12H PRN (Reason: pain (scale score 1-3)) Qty: 20 0RF (DME) compression panty, 1x-2x Misc See Rx Instructions .Route Qty: 1 0RF Rx Instructions: As directed ibuprofen 600 mg tablet 600 mg PO Q6H PRN (Reason: fever or pain) Qty: 30 0RF Referrals: Mariam Fitch NP [Primary Care Provider, Internal Medicine] Interventions: ED Discharge Assessment Last Done: 02/16/25 15:08 Discharge Date/Time: 02/16/25 15:09 Print Language: [place]ib[place]ian
[2025-02-16 11:32] LABS: MANUAL DIFF FLAG NO
[2025-02-16 11:35] LABS: Hematocrit 35.8 % (37.0-47.0); Hemoglobin 11.1 g/dl (12.0-16.0); Imm Gran Abs Auto 0.06 X10*3/uL (0.00-0.03); Imm Gran Pct Auto 0.7 % (0.0-0.4); Lymphocytes Absolute Auto 2.0 X10*3/uL (1.2-4.9); Mean Corpuscular HGB Conc 31.0 g/dl (31.0-35.0); Mean Corpuscular Hemoglobin 25.5 pg (27.0-33.0); Mean Corpuscular Volume 82.1 fL (80.0-98.0); NRBC Abs Auto 0.000 X10*3/uL (0.0-0.012); NRBC Pct Auto 0.0 /100WBC (0.0-0.2); Platelet Count 360 X10*3/uL (160-400); Red Blood Count 4.36 X10*6/uL (4.20-5.50); White Blood Count 9.0 X10*3/uL (4.8-10.8)
[2025-02-16 11:54] LABS: Alanine Aminotransferase 16 U/L (0-31); Albumin Level 4.0 g/dL (3.5-5.0); Alkaline Phosphatase 101 U/L (39-117); Anion Gap 10 (12-20); Aspartate Amino Transferase 25 U/L (5-31); Blood Urea Nitrogen 10 mg/dL (9-16); Calcium 8.9 mg/dL (8.4-10.2); Carbon Dioxide 25 mmol/L (22-29); Chloride 112 mmol/L (96-108); Creatinine Clr Calc Pharmacy 100.5; Estimated Glomerular Filt Rate > 60; Magnesium 1.9 mg/dL (1.6-2.6); Potassium 4.6 mmol/L (3.3-5.1); Sodium 142 mmol/L (135-145); Total Protein 6.5 g/dL (6.5-8.0)
[2025-02-16 12:27] LABS: Erythrocyte Sedimentation Rate 16 MM/HR (0-20)
[2025-02-16 15:08] VITALS: BP 133/65; PULSE 83; RESP 18; TEMP 36.6; O2SAT 100
--- OUTSIDE RECORDS SUMMARY | 2025-02-16 15:13 | XMS_ITS | Clinical Summary ---
Author Organization [employer] Address [address] [place] [address] [address] [place] [address] Care Team Providers Care Architectural Administrative Assistant Name Role Phone Unavailable Primary Care Provider Unavailabl e Social History Tobacco Use Types Packs/Day Years Used Date Smoking Tobacco: Never Assessed Comments Unknown Sex and Gender Information Value Date Recorded Sex Assigned at Female 02/20/2023 8:59 AM EST Legal Sex Female 8:58 AM EST Gender Identity Female 02/20/2023 8:59 AM EST Sexual Orientation Don't know 02/20/2023 8: 59 AM EST Plan of Treatment Health Maintenance Due Date Last Done Comments Depression Screening 1990 Lipid Panel 1990 SDOH Screening 1990 Disability Screening 1990 Alcohol/Substance Use Screening 2002 Tobacco Screening 2002 Family Planning (PISQ) 2005 Hepatitis C Screening 2008 Pap Smear 2011 Cervical Cancer Screening 2020 HPV/Cotest 2020 HPV Vaccines (3 - 3-dose series) 01/15/2024 09/18/2023, 07/16/2023 COVID-19 Vaccine (2 - 2024-2 6 season) 2024 03/21/2022 Influenza Vaccine (#1) 2024 12/08/2023 DTaP/Tdap/Td Vaccines (2 - T d or Tdap) 09/17/2033 09/18/2023 Zoster Vaccines (1 of 2) 2040 RSV Patients and Patients Aged 60 years or older (1 - 1-dose 75+ series) 2065 HIV Screening Completed 08/03/2023 Hepatitis A Vaccines Aged Out 09/18/2023 No long er eligible based on patient's age to complete this topic Hepatitis B Vaccines Completed 04/25/2024, 12/08/2023, 09/18/2023 HIB Vaccines Aged Out No longer eligi ble based on patient's age to complete this topic IPV Vaccines Aged Out No longer eligi ble based on patient's age to complete this topic Meningococcal B Vaccine Aged Out No l onger eligible based on patient's age to complete this topic Meningococcal Vaccine Aged Out No torrey ilya eligible based on patient's age to complete this topic Pneumococcal Vaccine: Pediatrics (0 to 5 Years) and At-Risk Patients (6 to 49) Years Aged Out No longer eligible b ased on patient's age to complete this topic RSV under 20 months Aged Out No longe r eligible based on patient's age to complete this topic Rotavirus Vaccines Aged Out No longer eligible based on patient's age to complete this topic Insurance * Guarantor: Ariane Locke Account Type Relation to Patient Date of Phone Billing Address Personal/Family Self 1990 [address] [facility] [address] [place] [address] [facility] C[facility]
== END 2025-02-16 15:09 | disposition home or self-care (01) ==
PROVIDERS: Registered Nurse Emergency; Emergency Provider Emergency Medicine Emergency Medical Services
DX: R51.9 Headache, unspecified (principal); R11.0 Nausea; H57.12 Ocular pain, left eye; D64.9 Anemia, unspecified
CPT/HCPCS: 36415; 80053; 83735; 84702; 85025; 85652; 86140; 96374; 96375; 99283; 99284; J1200; J1885; J2765

== ENCOUNTER 2025-02-26 11:46 | Emergency (ER) | payer MEDICAID, SELFPAY ==
[2025-02-26 12:22] VITALS: BP 137/94; PULSE 91; RESP 18; TEMP 36.7; O2SAT 99; BMI 39.7
--- NOTE | 2025-02-26 12:23 | ED_ITS ---
HPI - Dental/Oral General Chief complaint: Dental/Oral Stated complaint: Dental Pain Time Seen by Provider: 02/26/25 15:53 History of Present Illness ED Provider: Yanelis VENTURA Narrative: The patient is a 34-year-old female who had a right lower molar pulled at the dental office 2 days ago. She was not put on antibiotics. She has been having problems with the tooth for some time. Yesterday she started to develop some swelling on the side of the jaw near where the tooth was pulled. The swelling was worse today and she came to the emergency room for evaluation. No fever. She has been using ibuprofen for discomfort without much relief. She has no antibiotic allergies. She is quite certain she is not . She says she has had tubal ligation. Related Data Previous Rx's ?Medication ?Instructions ?Recorded compression panty, 1x-2x #1 ea 09/30/23 naproxen 500 mg tablet 500 mg PO Q8-12H PRN pain (s maury 09/30/23 score 1-3) #20 tabs ibuprofen 600 mg tablet 600 mg PO Q6H PRN fever or p ain 12/06/23 #30 tabs mdjpblw-ohipmvrsirgno-ynhenhlv 250 1 tab PO Q4-6H PRN headache #10 02/16/25 mg-250 mg-65 mg tablet (Excedrin tabs Migraine) diphenhydramine HCl 25 mg tablet 50 mg (2 x 25 mg) PO Q6-8H PRN 02/16/25 (Benadryl Allergy) headache #10 tabs metoclopramide HCl 10 mg tablet 10 mg PO Q8H PRN heada jana #9 tabs 02/16/25 (Reglan) acetaminophen 500 mg capsule 1,000 mg (2 x 500 mg) PO Q8H PRN 02/26/25 fever or pain #14 caps clindamycin HCl 300 mg capsule 600 mg (2 x 300 mg) PO TID 8 days 02/26/25 (Cleocin HCl) #48 caps ibuprofen 400 mg tablet 400 mg PO Q6H PRN pain #14 t abs 02/26/25 oxycodone 5 mg tablet 5 mg PO Q6H PRN pain #10 tab s 02/26/25 Allergies Allergy/AdvReac Type Severity Reaction Status Date / Time No Known Allergies Allergy Verified 02/26/25 12:27 Review of Systems 2 Review of Systems: Yes all other systems are reviewed and are negative [facility] Social History Social History Smoked in Last 30 Days: No Use of substances other than those prescribed or required for medical reasons: No Advance Directives: No Advance Directives Information Provided: No Patient : No Physical Exam 2 Vital Signs: Vital Signs: Last Vital Signs Temp 98.2 F 02/26/25 18:42 Pulse 98 02/26/25 18:42 Resp 16 02/26/25 18:42 BP 124/68 02/26/25 18:42 Pulse Ox 97 02/26/25 18:42 O2 Del Method Room Air 02/26/25 18:42 BMI result Body Mass Index 39.7 Const: Other: The patient is awake and alert, pleasant and cooperative. There is some obvious swelling to the right side of the face but otherwise she does not appear toxic. Orientation/consciousness: patient oriented x3 HEENT: Other: The patient has swelling to the face over the service of the right mandible. Swelling is present but the skin overlying the swelling is normal in appearance. She is able to open her mouth fully. There was no elevation of the floor of the mouth. There is soft tissue swelling apparent in the gutter of the vestibule on the right side of the mouth. This was tender and possibly was fluctuant. There was no purulent drainage however. The patient is handling her secretions normally. Phonation seems unremarkable. Eyes: Other: Pupils are round equal, conjunctivae are clear, extraocular movements intact Neck: Other: No significant cervical adenopathy. She is able to move her neck easily. The neck seems benign. Resp: Effort & Inspection: normal respiratory effort Auscultation: clear to auscultation bilaterally Cardio: Rate: regular rate Rhythm: regular rhythm Heart sounds: S1 normal heart sound present and S2 normal heart sound present Skin: Other: There is soft tissue swelling over the right side of the jaw but the skin is not otherwise abnormal. No erythema. Neuro: General: patient oriented x3, gait normal, tone normal, moves all extremities, no focal motor deficits and CN's II-XI intact bilaterally Extrem: Other: No peripheral edema Course Course Course Narrative: This is an RME: Additional HPI, ROS, PE not included below will be deferred to primary provider. RME assessment and note performed by: Ariane Reyez PA-C This is a [id number] who presents to the ER with a complaint of right lower dental pain and swelling. Had tooth pulled 3 days ago now having pain, swelling. Not on abx. Reports some difficulty swallowing. She is speaking in full sentences. Plan: Labs, may need diagnostic imaging Medications Administered Discontinued Medications Generic Name Dose Route Start Last Admin Trade Name Khloe PRN Reason Stop Dose Admin Clindamycin Phosphate 900 mg in 50 mls @ 50 mls/hr 02/26/25 16:08 02/26/25 17:41 Cleocin IV 02/26/25 17:07 Infused ONCE ONE Infusion Acetaminophen 1,000 mg in 100 mls @ 400 mls/hr 02/26/25 16:19 02/26/25 17:09 Ofirmev IV 02/26/25 16:33 Infused ONCE ONE Infusion Ketorolac Tromethamine 15 mg 02/26/25 16:19 02/26/25 16:54 Ketorolac Tromethamine 15 Mg/Ml Vial IVPUSH 02/26/25 16:20 15 mg ONCE ONE Administration Lidocaine/Epinephrine 10 ml 02/26/25 15:58 02/26/25 16:07 Lidocaine Hcl 1%/Epi 1:100,000 10 Ml Vial INFILTRATI 02/26/25 15:59 10 ml ONCE ONE Administration Medical Decision Making Medical Decision Making [facility] Narrative: The patient has a dental infection at the right jaw related to a recently pulled tooth. On examination it was not clear whether this was an abscess or a phlegmon. On the assumption that it might be an abscess I explained to the patient that I felt that an attempt at needle aspiration or possible incision and drainage would be appropriate. The patient understood. I then used a Lolicaine for topical anesthesia. This was followed by injection of 1 mL of 1% lidocaine with has been Afrin through a 30 gauge needle in the region of swelling at the base of the vestibule on the right side of the mouth. Once anesthesia was achieved I used an 18 gauge needle to attempt an aspiration. I passed the needle several times into the most swollen regions but I was not able to aspirate any pus. I therefore think that this is a phlegmon. The patient was given 900 mg of IV clindamycin as well as IV ketorolac and acetaminophen. The patient will be discharged with a prescription for clindamycin 600 mg p.o. t.i.d., also prescriptions for acetaminophen, ibuprofen, and oxycodone. She is advised to contact her dentist tomorrow to see if she can be re-evaluated at the dental office. She should return to the emergency room if worse. Lab Data 02/26/25 12:53 02/26/25 12:53 Labs: Lab Results 02/26/25 Range/Units 12:53 WBC 9.2 (4.8-10.8) X10*3/uL RBC 5.08 (4.20-5.50) X10*6/uL Hgb 12.7 (12.0-16.0) g/dl Hct 41.4 (37.0-47.0) % MCV 81.5 (80.0-98.0) fL MCH 25.0 L (27.0-33.0) pg MCHC 30.7 L (31.0-35.0) g/dl RDW 15.8 (11.0-16.0) % Plt Count 415 H (160-400) X10*3/uL MPV 9.6 (9.4-12.3) fL Immature Gran % (Auto) 0.9 H (0.0-0.4) % Neut % (Auto) 61.9 (45-73) % Lymph % (Auto) 21.3 (20-40) % [place] % (Auto) 14.3 H (2-11) % Eos % (Auto) 1.1 (0-4) % Baso % (Auto) 0.5 (0-2) % Lymph # (Auto) 2.0 (1.2-4.9) X10*3/uL [place] # (Auto) 1.3 H (0.1-1.2) X10*3/uL Eos # (Auto) 0.1 (0.0-0.4) X10*3/uL Baso # (Auto) 0.1 (0.0-0.2) X10*3/uL Abs Immat Gran (auto) 0.08 H (0.00-0.03) X10*3/uL Absolute Neuts (auto) 5.7 (2.0-8.3) x10*3/uL Absolute Nucleated RBC 0.000 (0.0-0.012) X10*3/uL Nucleated RBC % (auto) 0.0 (0.0-0.2) /100WBC Sodium 141 (135-145) mmol/L Potassium 4.1 (3.3-5.1) mmol/L Chloride 110 H (96-108) mmol/L Carbon Dioxide 23 (22-29) mmol/L Anion Gap 12 (12-20) BUN 10 (9-16) mg/dL Creatinine 0.83 (0.5-1.4) mg/dL Estim Creat Clear Calc 96.6 Estimated GFR > 60 Random Glucose 96 (60-115) mg/dL Calcium 8.7 (8.4-10.2) mg/dL Total Bilirubin 0.2 (0.0-1.0) mg/dL Direct Bilirubin < 0.2 (0.0-0.5) mg/dL AST 31 (5-31) U/L ALT 40 H (0-31) U/L Alkaline Phosphatase 112 (39-117) U/L Total Protein 7.2 (6.5-8.0) g/dL Albumin 4.2 (3.5-5.0) g/dL Beta HCG, Quant < 2 mIU/mL Discharge Plan Discharge Clinical Impression: Dental infection, Dental abscess Patient Disposition: Home, Self-Care Instructions: Dental Abscess (ED) Additional Instructions: Please take the antibiotics 3 times a day, a proximally every 8 hours. Take your next dose at around 1:00 AM this morning. You may take acetaminophen every 8 hours as needed for pain. You may take ibuprofen every 6 hours as needed for pain. There is also a prescription for oxycodone tablets that you may take every 6 hours as needed as well. Try to use this medication as little as possible. Use warm compresses to the side of your face where you have the swelling. Please contact your dentist tomorrow to see if they can recheck you. For at any point you feel things are getting significantly worse please return to the emergency room for further evaluation. Prescriptions: New ibuprofen 400 mg tablet 400 mg PO Q6H PRN (Reason: pain) Qty: 14 0RF clindamycin HCl [Cleocin HCl] 300 mg capsule 600 mg PO TID 8 Days Qty: 48 0RF oxycodone 5 mg tablet 5 mg PO Q6H PRN (Reason: pain) Qty: 10 0RF Rx Instructions: Partial Fill upon patient request. acetaminophen 500 mg capsule 1,000 mg PO Q8H PRN (Reason: fever or pain) Qty: 14 0RF No Action naproxen 500 mg tablet 500 mg PO Q8-12H PRN (Reason: pain (scale score 1-3)) Qty: 20 0RF (DME) compression panty, 1x-2x Misc See Rx Instructions .Route Qty: 1 0RF Rx Instructions: As directed ibuprofen 600 mg tablet 600 mg PO Q6H PRN (Reason: fever or pain) Qty: 30 0RF metoclopramide HCl [Reglan] 10 mg tablet 10 mg PO Q8H PRN (Reason: headache) Qty: 9 0RF diphenhydramine HCl [Benadryl Allergy] 25 mg tablet 50 mg PO Q6-8H PRN (Reason: headache) Qty: 10 0RF naodzln-njxpvcgjbmcof-ykqomdms [Excedrin Migraine] 250-250-65 mg tablet 1 tab PO Q4-6H PRN (Reason: headache) Qty: 10 0RF Referrals: Mariam Fitch NP [Primary Care Provider, Internal Medicine] Interventions: ED Discharge Assessment Last Done: 02/26/25 18:42 Discharge Date/Time: 02/26/25 18:43 Print Language: Albanian
[2025-02-26 13:01] LABS: MANUAL DIFF FLAG NO
[2025-02-26 13:04] LABS: Hematocrit 41.4 % (37.0-47.0); Hemoglobin 12.7 g/dl (12.0-16.0); Imm Gran Abs Auto 0.08 X10*3/uL (0.00-0.03); Imm Gran Pct Auto 0.9 % (0.0-0.4); Lymphocytes Absolute Auto 2.0 X10*3/uL (1.2-4.9); Mean Corpuscular HGB Conc 30.7 g/dl (31.0-35.0); Mean Corpuscular Hemoglobin 25.0 pg (27.0-33.0); Mean Corpuscular Volume 81.5 fL (80.0-98.0); NRBC Abs Auto 0.000 X10*3/uL (0.0-0.012); NRBC Pct Auto 0.0 /100WBC (0.0-0.2); Platelet Count 415 X10*3/uL (160-400); Red Blood Count 5.08 X10*6/uL (4.20-5.50); White Blood Count 9.2 X10*3/uL (4.8-10.8)
[2025-02-26 13:32] LABS: Alanine Aminotransferase 40 U/L (0-31); Albumin Level 4.2 g/dL (3.5-5.0); Alkaline Phosphatase 112 U/L (39-117); Anion Gap 12 (12-20); Aspartate Amino Transferase 31 U/L (5-31); Blood Urea Nitrogen 10 mg/dL (9-16); Calcium 8.7 mg/dL (8.4-10.2); Carbon Dioxide 23 mmol/L (22-29); Chloride 110 mmol/L (96-108); Creatinine Clr Calc Pharmacy 96.6; Estimated Glomerular Filt Rate > 60; Potassium 4.1 mmol/L (3.3-5.1); Sodium 141 mmol/L (135-145); Total Protein 7.2 g/dL (6.5-8.0)
[2025-02-26] MEDS: Lidocaine HCl 1%/Epi 1:100,000 10 ML VIAL INFILTRATI (16:07)
[2025-02-26 16:11] VITALS: BP 136/81; PULSE 104; RESP 18; O2SAT 97
--- NOTE | 2025-02-26 16:14 | PC.NURSE ---
antibiotic ordered from pharmacy- not avail in ED Pyxis
[2025-02-26 18:34] VITALS: BP 124/68; PULSE 98; RESP 16; TEMP 36.8; O2SAT 97
[2025-02-26 18:42] VITALS: BP 124/68; PULSE 98; RESP 16; TEMP 36.8; O2SAT 97
--- OUTSIDE RECORDS SUMMARY | 2025-02-26 23:17 | XMS_ITS | Clinical Summary ---
Author Organization [email or web address] [facility] Address [address] [facility] [address] [place] [address] Care Team Providers Care Director Educational Radio Name Role Phone Unavailable Primary Care Provider Unavailabl e Encounters Date Type Department Care Team Description 02/16/2025 Population Health Risk Score [facility] (C[facility]) Department [address] [facility] [address] [place] [address] Provider, Population Health Generic from Last 3 Months Social History Tobacco Use Types Packs/Day Years [...] Phone Billing Address Personal/Family Self 1990 [address] [facility] [address] [place] [address] [facility] C[facility]
== END 2025-02-26 18:43 | disposition home or self-care (01) ==
PROVIDERS: Physician Assistant Medical; Emergency Provider Emergency Medicine
DX: K04.7 Periapical abscess without sinus (principal); R68.84 Jaw pain; Z79.899 Other long term (current) drug therapy
CPT/HCPCS: 36415; 41800; 80048; 80076; 84702; 85025; 96365; 96375; 99284; J0131; J0736; J1885; J2004

== ENCOUNTER 2025-02-27 13:00 | Emergency (ER) | payer MEDICAID, SELFPAY ==
[2025-02-27] VITALS (8 sets, daily range): BP systolic 122–146; BP diastolic 61–102; PULSE 72–150; RESP 18; TEMP 37.1–38.6; O2SAT 96–100; BMI 33.4
--- NOTE | ~2025-02-27 | CT_ITS ---
CLINICAL HISTORY: c f abscess CT soft tissue neck with contrast Comparison: None available Findings: There is skin thickening and infiltration of the subcutaneous fat in the right mandibular and submandibular regions. Trace ill-defined fluid and fatty infiltration in the right submandibular space. Adjacent lymph nodes measure up to 1.0 cm in short axis, reactive. There is mild thickening of the right platysma muscle. Right submandibular gland is normal in size and attenuation without ductal dilatation; sialadenitis is considered unlikely. No identified dental cavity or periapical cyst Normal pharyngeal mucosa, oral cavity and larynx. No suspicious lymph nodes. Normal parotid and submandibular glands. Unremarkable thyroid. Normal vessels and carotid space. No acute fracture. The lung apices are clear. Impression: Cellulitis. No abscess. Associated mild lymphadenopathy. This document has been electronically signed by: Penny Fields MD on 02/27/2025 17:55:06
--- NOTE | 2025-02-27 13:10 | ED_ITS ---
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 Patient states she return to the dental office this morning and he injected anesthetic, performed an incision and drainage of her dental abscess and placed sutures. Her significant other states that when he brought her out to the car, she had uncontrollable or rigors. Both patient and her significant other report that her swelling is similar to or possibly slightly improved from yesterday. She states that the anesthetic has completely worn off and she is having severe pain to the area. Reports mild difficulty swallowing. Having sweats all throughout the night. MD complaint: dental Related Data Previous Rx's ?Medication ?Instructions ?Recorded compression panty, 1x-2x #1 ea 09/30/23 naproxen 500 mg tablet 500 mg PO Q8-12H PRN pain (s maury 09/30/23 score 1-3) #20 tabs ibuprofen 600 mg tablet 600 mg PO Q6H PRN fever or p ain 12/06/23 #30 tabs ofsbljg-qranxnrjoaoia-guqfizkg 250 1 tab PO Q4-6H PRN headache #10 02/16/25 mg-250 mg-65 mg tablet (Excedrin tabs Migraine) diphenhydramine HCl 25 mg tablet 50 mg (2 x 25 mg) PO Q6-8H PRN 02/16/25 (Benadryl Allergy) headache #10 tabs metoclopramide HCl 10 mg tablet 10 mg PO Q8H PRN heada jana #9 tabs 02/16/25 (Reglan) acetaminophen 500 mg capsule 1,000 mg (2 x 500 mg) PO Q8H PRN 02/26/25 fever or pain #14 caps clindamycin HCl 300 mg capsule 600 mg (2 x 300 mg) PO TID 8 days 02/26/25 (Cleocin HCl) #48 caps ibuprofen 400 mg tablet 400 mg PO Q6H PRN pain #14 t abs 12/11/25 oxycodone 5 mg tablet 5 mg PO Q6H PRN pain #10 tab s 02/26/25 Allergies Allergy/AdvReac Type Severity Reaction Status Date / Time No Known Allergies Allergy Verified 02/27/25 13:16 Review of Systems 2 Review of Systems: As per HPI Yes all other systems are reviewed and are negative Constitutional: Constitutional: Reports as per HPI [facility] Social History Social History Smoked in Last 30 Days: No Advance Directives: No Advance Directives Information Provided: No Physical Exam ED Vital Signs: Vital Signs - 24 hr 02/27/25 13:15 02/27/25 14:00 02/27/25 15:32 Temperature 101.5 F H Pulse Rate 134 H 80 119 H Respiratory Rate 18 18 Blood Pressure 132/66 128/66 132/61 Pulse Oximetry 99 96 Oxygen Delivery Method Room Air Room Air 02/27/25 16:19 02/27/25 17:48 Temperature Pulse Rate 121 H 72 Respiratory Rate 18 Blood Pressure 132/66 122/66 Pulse Oximetry 97 Oxygen Delivery Method Room Air BMI result Body Mass Index 33.4 Vital signs have been reviewed and appear to be correct. Blood pressure normal. Heart rate normal. Respiratory rate normal. Temperature febrile. Oxygen saturation normal. Const General: cooperative, healthy appearing and no acute distress Orientation/consciousness: oriented to person, oriented to place, oriented to time and patient oriented x3 Limitations: no limitations [facility] Head: Yes normocephalic and Yes atraumatic Ears: external ears normal General nose exam: Normal external nose present Face and sinus: Yes face symmetric Face images: 2 1. swelling without erythema or warmth Mouth: lip normal, tongue normal, oropharynx normal, moist mucous membranes, no drooling, restricted motion and other (swelling to buccal gingiva on right lower, no drainage) Teeth and gingiva: gingiva abnormal Teeth image: 2 1. visible sutures Throat: Yes posterior oropharynx normal and Yes uvula midline Eyes Pupils: Equal, round and reactive pupils present Neck Neck: Yes normal visual inspection, Yes no lymphadenopathy and Yes supple Resp Effort & Inspection: normal respiratory effort and able to speak in complete sentences Auscultation: clear to auscultation bilaterally Cardio Rate: regular rate Rhythm: regular rhythm Heart sounds: S1 normal heart sound present and S2 normal heart sound present GI Palpation (GI): Soft to palpation and nontender Auscultation: normoactive bowel sounds General: Yes no CVA tenderness Back/Spine/Pelvis Back: no CVA tenderness Skin General skin exam: elasticity normal and turgor normal Neuro General: oriented to person, oriented to place, oriented to time, patient oriented x3, moves all extremities, no focal motor deficits and CN's II-XI intact bilaterally Cranial nerves: Yes Equal, round and reactive pupils present Cognition (Neuro): normal cognition Extrem General: Yes full ROM, Yes no pedal edema and Yes no calf tenderness Psych Mental Status: mental status grossly normal Affect: normal affect Thought process: Normal thought process present Course Course Course Narrative: February 27, 2025, 5:15 p.m. received sign-out with the patient in stable condition pending CT. Patient received IV fluids. February 27, 2025, 6:[address] results returned, no abscess, cellulitis is noted. These findings were reviewed with the patient via truck loader and unloader and family member at the bedside. At this time the patient is hemodynamically stable and afebrile. She reports feeling much better at this time. Patient has received IV fluids. She has been able to tolerate fluids while in the emergency department. Patient feels comfortable with discharge plan home. She confirms that she has clindamycin that she will continue to take. We will add naproxen. Patient will follow up with her dentist. Reviewed all discharge instructions. No further questions at this time. Medications Administered Discontinued Medications Generic Name Dose Route Start Last Admin Trade Name Freq PRN Reason Stop Dose Admin Lactated Ringer's 1,000 mls @ 999 mls/hr 02/27/25 13:30 02/27/25 15:31 Lr IV 02/27/25 14:30 Infused .Q1H1M BUZZ Infusion Clindamycin Phosphate 600 mg in 50 mls @ 100 mls/hr 02/27/25 13:20 02/27/25 14:10 Cleocin IV 02/27/25 13:49 Infused ONCE ONE Infusion Acetaminophen 1,000 mg in 100 mls @ 400 mls/hr 02/27/25 15:15 02/27/25 16:07 Ofirmev IV 02/27/25 15:29 Infused ONCE ONE Infusion Iohexol 100 ml 02/27/25 17:10 02/27/25 17:10 Iohexol 350 Mg/Ml 100 Ml Infus..Btl IV 02/27/25 17:11 60 ml ONCE ONE Administration Morphine Sulfate 4 mg 02/27/25 13:48 02/27/25 13:53 Morphine Sulfate 4 Mg/Ml Cartridge IVPUSH 02/27/25 13:49 4 mg ONCE ONE Administration Protocol Medical Decision Making Medical Decision Making [facility] Narrative: Patient is a 34-year-old Irish-speaking female with history of recent right lower molar extraction at the dentist 3 days ago presenting with acute onset of rigors after leaving dental office today. On exam patient is awake, A+Ox3, VS WNL, afebrile, normal neurological exam without focal deficits, physical exam findings as above. Given reported symptoms and physical exam findings, initial differential includes but is not limited to odontogenic abscess versus phlegmon, sepsis, early neck deep space infection. IV antibiotics ordered. Labs notable for slight leukopenia with left shift, elevated lactic. Viral serology negative. In-person truck loader and unloader was utilized for all interactions, assessments, and discussions. Patient signed out to [facility] Campos pending CT results. Differential Diagnosis Differential Diagnoses: The differential diagnosis associated with the presentation includes as per [facility] Admission/Observation Consideration of admission/observation: Escalation of care including admission/observation considered Lab Data [facility] Lab Attestation statement: I reviewed the patient's lab results. as per [facility] 02/27/25 13:28 02/27/25 13:28 Labs: Lab Results 02/27/25 02/27/25 02/27/25 Range/Units 13:28 13:29 15:51 WBC 4.2 L (4.8-10.8) X10*3/uL RBC 4.78 (4.20-5.50) X10*6/uL Hgb 11.9 L (12.0-16.0) g/dl Hct 38.7 (37.0-47.0) % MCV 81.0 (80.0-98.0) fL MCH 24.9 L (27.0-33.0) pg MCHC 30.7 L (31.0-35.0) g/dl RDW 15.8 (11.0-16.0) % Plt Count 335 (160-400) X10*3/uL MPV 9.8 (9.4-12.3) fL Immature Gran % (Auto) 1.7 H (0.0-0.4) % Neut % (Auto) 79.8 H (45-73) % Lymph % (Auto) 16.1 L (20-40) % [place] % (Auto) 0.7 L (2-11) % Eos % (Auto) 1.2 (0-4) % Baso % (Auto) 0.5 (0-2) % Lymph # (Auto) 0.7 L (1.2-4.9) X10*3/uL [place] # (Auto) 0.0 L (0.1-1.2) X10*3/uL Eos # (Auto) 0.1 (0.0-0.4) X10*3/uL Baso # (Auto) 0.0 (0.0-0.2) X10*3/uL Abs Immat Gran (auto) 0.07 H (0.00-0.03) X10*3/uL Absolute Neuts (auto) 3.3 (2.0-8.3) x10*3/uL Absolute Nucleated RBC 0.000 (0.0-0.012) X10*3/uL Nucleated RBC % (auto) 0.0 (0.0-0.2) /100WBC Sodium 140 (135-145) mmol/L Potassium 4.1 (3.3-5.1) mmol/L Chloride 110 H (96-108) mmol/L Carbon Dioxide 19 L (22-29) mmol/L Anion Gap 15 (12-20) BUN 13 (9-16) mg/dL Creatinine 0.84 (0.5-1.4) mg/dL Estim Creat Clear Calc 108.9 Estimated GFR > 60 Random Glucose 107 (60-115) mg/dL Lactic Acid 2.3 H* (0.5-2.0) mmol/L Lactic Acid F/U @ 2Hr 1.3 (0.5-2.0) mmol/L Calcium 8.6 (8.4-10.2) mg/dL Total Bilirubin 0.2 (0.0-1.0) mg/dL AST 27 (5-31) U/L ALT 29 (0-31) U/L Alkaline Phosphatase 121 H (39-117) U/L Total Protein 6.6 (6.5-8.0) g/dL Albumin 3.9 (3.5-5.0) g/dL Beta HCG, Quant < 2 mIU/mL Influenza Type A (PCR) NEGATIVE (Negative) Influenza Type B (PCR) NEGATIVE (Negative) RSV RNA Qual (PCR) NEGATIVE (Negative) SARS-CoV-2 RNA (RT-PCR) NEGATIVE (Negative) S. pyogenes GrpA SVITLANA Negative (Negative) Independent Historian Clinical information obtained from an independent historian. History obtained from or confirmed by: Spouse External Record Review External record reviewed: Inpatient record, Office record and Outpatient record Critical Care Time Critical Care Time Critical Care Time: Yes Total Critical Care Time: 45 Attestation: I have personally provided critical care time exclusive of time spent on separately billable procedures. Time includes review of lab data, radiology results, discussion with consultants, and monitoring for potential decompensation. Intervention performed as documented. Discharge Plan Discharge Clinical Impression: Dentoalveolar cellulitis, Facial swelling, Pain, dental Patient Disposition: Home, Self-Care Instructions: Cellulitis (ED), Toothache (ED) Additional Instructions: Continue clindamycin as directed. Finish all antibiotics. You may take the oxycodone as directed that was prescribed to you yesterday. This is a narcotic pain medication and may be addictive. Use with caution. Do not drink alcohol, drive or operate heavy machinery while taking this medication. Naproxen as directed. Take with food. Watch for increased swelling, severe pain, fevers or any other concern return immediately to the emergency department. Follow up with your dentist Sunday morning. Follow-up with your primary care provider. Call this week to schedule a follow- up appointment. Return to the emergency department if you have any worsening of symptoms, or any concerns. Get well soon! Prescriptions: No Action ibuprofen 400 mg tablet 400 mg PO Q6H PRN (Reason: pain) Qty: 14 0RF clindamycin HCl [Cleocin HCl] 300 mg capsule 600 mg PO TID 8 Days Qty: 48 0RF oxycodone 5 mg tablet 5 mg PO Q6H PRN (Reason: pain) Qty: 10 0RF Rx Instructions: Partial Fill upon patient request. acetaminophen 500 mg capsule 1,000 mg PO Q8H PRN (Reason: fever or pain) Qty: 14 0RF naproxen 500 mg tablet 500 mg PO Q8-12H PRN (Reason: pain (scale score 1-3)) Qty: 20 0RF (DME) compression panty, 1x-2x Misc See Rx Instructions .Route Qty: 1 0RF Rx Instructions: As directed ibuprofen 600 mg tablet 600 mg PO Q6H PRN (Reason: fever or pain) Qty: 30 0RF metoclopramide HCl [Reglan] 10 mg tablet 10 mg PO Q8H PRN (Reason: headache) Qty: 9 0RF diphenhydramine HCl [Benadryl Allergy] 25 mg tablet 50 mg PO Q6-8H PRN (Reason: headache) Qty: 10 0RF xjudbrs-fufxbvcmznyuu-andypcxa [Excedrin Migraine] 250-250-65 mg tablet 1 tab PO Q4-6H PRN (Reason: headache) Qty: 10 0RF Print Language: Irish
--- NOTE | 2025-02-27 13:18 | ECG_ITS ---
Test Reason : tachycardic Blood Pressure : */* mmHG Vent. Rate : 153 BPM Atrial Rate : 153 BPM P-R Int : 154 ms QRS Dur : 60 ms QT Int : 246 ms P-R-T Axes : 81 43 -47 degrees QTcB Int : 392 ms Poor data quality, interpretation may be adversely affected Sinus tachycardia Cannot rule out Anterior infarct , age undetermined ST & T wave abnormality, consider inferior ischemia Abnormal ECG When compared with ECG of 05-Dec-2023 16:33, Vent. rate has increased by 65 bpm T wave inversion more evident in Inferior leads T wave inversion now evident in Lateral leads Referred By: Cielo Tsai Electronically Signed By: GALO DIGGS MD
[2025-02-27 13:36] LABS: MANUAL DIFF FLAG NO
[2025-02-27 13:37] LABS: Hematocrit 38.7 % (37.0-47.0); Hemoglobin 11.9 g/dl (12.0-16.0); Imm Gran Abs Auto 0.07 X10*3/uL (0.00-0.03); Imm Gran Pct Auto 1.7 % (0.0-0.4); Lymphocytes Absolute Auto 0.7 X10*3/uL (1.2-4.9); Mean Corpuscular HGB Conc 30.7 g/dl (31.0-35.0); Mean Corpuscular Hemoglobin 24.9 pg (27.0-33.0); Mean Corpuscular Volume 81.0 fL (80.0-98.0); NRBC Abs Auto 0.000 X10*3/uL (0.0-0.012); NRBC Pct Auto 0.0 /100WBC (0.0-0.2); Platelet Count 335 X10*3/uL (160-400); Red Blood Count 4.78 X10*6/uL (4.20-5.50); White Blood Count 4.2 X10*3/uL (4.8-10.8)
[2025-02-27] MEDS: Lactated Ringers 1,000 ML 999 ML IV (13:41)
[2025-02-27 13:57] LABS: Strep A Nucleic Acid Negative (Negative)
[2025-02-27 13:59] LABS: Alanine Aminotransferase 29 U/L (0-31); Albumin Level 3.9 g/dL (3.5-5.0); Alkaline Phosphatase 121 U/L (39-117); Anion Gap 15 (12-20); Aspartate Amino Transferase 27 U/L (5-31); Blood Urea Nitrogen 13 mg/dL (9-16); Calcium 8.6 mg/dL (8.4-10.2); Carbon Dioxide 19 mmol/L (22-29); Chloride 110 mmol/L (96-108); Creatinine Clr Calc Pharmacy 108.9; Estimated Glomerular Filt Rate > 60; Potassium 4.1 mmol/L (3.3-5.1); Sodium 140 mmol/L (135-145); Total Protein 6.6 g/dL (6.5-8.0)
[2025-02-27 14:26] LABS: Resp Syncy Virus RNA Qual PCR NEGATIVE (Negative); SARS COV2 PCR INHOUSE NEGATIVE (Negative)
[2025-02-27 15:33] LABS: Reflex Lactate? Lactic Acid Added
[2025-02-27 16:12] LABS: ~Lactic Acid-LAB USE ONLY 1.3 mmol/L (0.5-2.0)
[2025-02-27] MEDS: iohexoL 350 MG/ML 100 ML INFUS..BTL IV (17:10)
--- NOTE | 2025-03-03 21:56 | ED_ITS ---
HPI - General Adult General Chief complaint: General Medical Stated complaint: TOOTH PAIN Time Seen by Provider: 02/27/25 13:10 Source: patient, family, RN notes reviewed, old records reviewed and technology specialist Mode of arrival: ambulatory Limitations: language barrier Related Data Previous Rx's ?Medication ?Instructions ?Recorded compression panty, 1x-2x #1 ea 09/30/23 naproxen 500 mg tablet 500 mg PO Q8-12H PRN pain (s maury 09/30/23 score 1-3) #20 tabs ibuprofen 600 mg tablet 600 mg PO Q6H PRN fever or p ain 12/06/23 #30 tabs osdxfkk-qapolpphstglw-qnktgcrg 250 1 tab PO Q4-6H PRN headache #10 02/16/25 mg-250 mg-65 mg tablet (Excedrin tabs Migraine) diphenhydramine HCl 25 mg tablet 50 mg (2 x 25 mg) PO Q6-8H PRN 02/16/25 (Benadryl Allergy) headache #10 tabs metoclopramide HCl 10 mg tablet 10 mg PO Q8H PRN heada jana #9 tabs 02/16/25 (Reglan) acetaminophen 500 mg capsule 1,000 mg (2 x 500 mg) PO Q8H PRN 02/26/25 fever or pain #14 caps clindamycin HCl 300 mg capsule 600 mg (2 x 300 mg) PO TID 8 days 02/26/25 (Cleocin HCl) #48 caps ibuprofen 400 mg tablet 400 mg PO Q6H PRN pain #14 t abs 02/26/25 oxycodone 5 mg tablet 5 mg PO Q6H PRN pain #10 tab s 02/26/25 Allergies Allergy/AdvReac Type Severity Reaction Status Date / Time No Known Allergies Allergy Verified 02/28/25 20:05 [facility] Social History Social History Advance Directives: No Advance Directives Information Provided: No Do you have a plan to hurt others: No Plan Physical Exam ED Vital Signs: BMI result Body Mass Index 33.4 Course Reevaluation(s) Reevaluation #1: Yanelis: We received a call from the lab today, March 03, 4 days after blood cultures were drawn, that blood cultures drawn on February 27 had 1 bottle positive for Gram-positive cocci in chains. The patient is a 34-year-old female who recently had 3 ER visits for what seemed to be a dental phlegmon or abscess. The patient has been on clindamycin 600 mg t.i.d.. I called the patient this evening and spoke with her through a [place]ian assistant speech language pathologist. On the whole she seemed to indicate that she is improving, although slowly. I told the patient that if she feels she is not getting significantly better she should return to the emergency room in the morning for re-evaluation or at any other time she is not feeling particularly well. Time: 21:58 Medications Administered Discontinued Medications Generic Name Dose Route Start Last Admin Trade Name Freq PRN Reason Stop Dose Admin Lactated Ringer's 1,000 mls @ 999 mls/hr 02/27/25 13:30 02/27/25 15:31 Lr IV 02/27/25 14:30 Infused .Q1H1M BUZZ Infusion Clindamycin Phosphate 600 mg in 50 mls @ 100 mls/hr 02/27/25 13:20 02/27/25 14:10 Cleocin IV 02/27/25 13:49 Infused ONCE ONE Infusion Acetaminophen 1,000 mg in 100 mls @ 400 mls/hr 02/27/25 15:15 02/27/25 16:07 Ofirmev IV 02/27/25 15:29 Infused ONCE ONE Infusion Iohexol 100 ml 02/27/25 17:10 02/27/25 17:10 Iohexol 350 Mg/Ml 100 Ml Infus..Btl IV 02/27/25 17:11 60 ml ONCE ONE Administration Morphine Sulfate 4 mg 02/27/25 13:48 02/27/25 13:53 Morphine Sulfate 4 Mg/Ml Cartridge IVPUSH 02/27/25 13:49 4 mg ONCE ONE Administration Protocol Medical Decision Making Lab Data 02/27/25 13:28 02/27/25 13:28 Labs: Lab Results 02/27/25 02/27/25 02/27/25 Range/Units 13:28 13:29 15:51 WBC 4.2 L (4.8-10.8) X10*3/uL RBC 4.78 (4.20-5.50) X10*6/uL Hgb 11.9 L (12.0-16.0) g/dl Hct 38.7 (37.0-47.0) % MCV 81.0 (80.0-98.0) fL MCH 24.9 L (27.0-33.0) pg MCHC 30.7 L (31.0-35.0) g/dl RDW 15.8 (11.0-16.0) % Plt Count 335 (160-400) X10*3/uL MPV 9.8 (9.4-12.3) fL Immature Gran % (Auto) 1.7 H (0.0-0.4) % Neut % (Auto) 79.8 H (45-73) % Lymph % (Auto) 16.1 L (20-40) % Posey % (Auto) 0.7 L (2-11) % Eos % (Auto) 1.2 (0-4) % Baso % (Auto) 0.5 (0-2) % Lymph # (Auto) 0.7 L (1.2-4.9) X10*3/uL Posey # (Auto) 0.0 L (0.1-1.2) X10*3/uL Eos # (Auto) 0.1 (0.0-0.4) X10*3/uL Baso # (Auto) 0.0 (0.0-0.2) X10*3/uL Abs Immat Gran (auto) 0.07 H (0.00-0.03) X10*3/uL Absolute Neuts (auto) 3.3 (2.0-8.3) x10*3/uL Absolute Nucleated RBC 0.000 (0.0-0.012) X10*3/uL Nucleated RBC % (auto) 0.0 (0.0-0.2) /100WBC Sodium 140 (135-145) mmol/L Potassium 4.1 (3.3-5.1) mmol/L Chloride 110 H (96-108) mmol/L Carbon Dioxide 19 L (22-29) mmol/L Anion Gap 15 (12-20) BUN 13 (9-16) mg/dL Creatinine 0.84 (0.5-1.4) mg/dL Estim Creat Clear Calc 108.9 Estimated GFR > 60 Random Glucose 107 (60-115) mg/dL Lactic Acid 2.3 H* (0.5-2.0) mmol/L Lactic Acid F/U @ 2Hr 1.3 (0.5-2.0) mmol/L Calcium 8.6 (8.4-10.2) mg/dL Total Bilirubin 0.2 (0.0-1.0) mg/dL AST 27 (5-31) U/L ALT 29 (0-31) U/L Alkaline Phosphatase 121 H (39-117) U/L Total Protein 6.6 (6.5-8.0) g/dL Albumin 3.9 (3.5-5.0) g/dL Beta HCG, Quant < 2 mIU/mL Influenza Type A (PCR) NEGATIVE (Negative) Influenza Type B (PCR) NEGATIVE (Negative) RSV RNA Qual (PCR) NEGATIVE (Negative) SARS-CoV-2 RNA (RT-PCR) NEGATIVE (Negative) S. pyogenes GrpA SVITLANA Negative (Negative) Discharge Plan Discharge Clinical Impression: Dentoalveolar cellulitis, Facial swelling, Pain, dental Patient Disposition: Home, Self-Care Instructions: Cellulitis (ED), Toothache (ED) Additional Instructions: Continue clindamycin as directed. Finish all antibiotics. You may take the oxycodone as directed that was prescribed to you yesterday. This is a narcotic pain medication and may be addictive. Use with caution. Do not drink alcohol, drive or operate heavy machinery while taking this medication. Naproxen as directed. Take with food. Watch for increased swelling, severe pain, fevers or any other concern return immediately to the emergency department. Follow up with your dentist thing Sunday morning. Follow-up with your primary care provider. Call this week to schedule a follow- up appointment. Return to the emergency department if you have any worsening of symptoms, or any concerns. Get well soon! Prescriptions: No Action ibuprofen 400 mg tablet 400 mg PO Q6H PRN (Reason: pain) Qty: 14 0RF clindamycin HCl [Cleocin HCl] 300 mg capsule 600 mg PO TID 8 Days Qty: 48 0RF oxycodone 5 mg tablet 5 mg PO Q6H PRN (Reason: pain) Qty: 10 0RF Rx Instructions: Partial Fill upon patient request. acetaminophen 500 mg capsule 1,000 mg PO Q8H PRN (Reason: fever or pain) Qty: 14 0RF naproxen 500 mg tablet 500 mg PO Q8-12H PRN (Reason: pain (scale score 1-3)) Qty: 20 0RF (DME) compression panty, 1x-2x Misc See Rx Instructions .Route Qty: 1 0RF Rx Instructions: As directed ibuprofen 600 mg tablet 600 mg PO Q6H PRN (Reason: fever or pain) Qty: 30 0RF metoclopramide HCl [Reglan] 10 mg tablet 10 mg PO Q8H PRN (Reason: headache) Qty: 9 0RF diphenhydramine HCl [Benadryl Allergy] 25 mg tablet 50 mg PO Q6-8H PRN (Reason: headache) Qty: 10 0RF fcwcpql-gmarugvloujrr-knkokdiz [Excedrin Migraine] 250-250-65 mg tablet 1 tab PO Q4-6H PRN (Reason: headache) Qty: 10 0RF Interventions: ED Discharge Assessment Last Done: 02/27/25 18:35 Discharge Date/Time: 02/27/25 18:35 Print Language: Colombian
== END 2025-02-27 18:35 | disposition home or self-care (01) ==
PROVIDERS: Registered Nurse Emergency; Emergency Provider Emergency Medicine
DX: K12.2 Cellulitis and abscess of mouth (principal); R22.0 Localized swelling, mass and lump, head; K08.89 Other specified disorders of teeth and supporting structures; Z03.818 Encounter for observation for suspected exposure to other biological agents ruled out
CPT/HCPCS: 36415; 70491; 80053; 83605; 84702; 85025; 87040; 87076; 87185; 87205; 87637; 87651; 93005; 96361; 96365; 96367; 96375; 99285; J0131; J0736; J2270; J7120; Q9967

== ENCOUNTER → 2025-02-27 13:18 | Outpatient (BNV) | payer MEDICAID, SELFPAY | PROVIDERS: Emergency Provider Emergency Medicine; Visit Provider Internal Medicine Cardiovascular Disease | DX: R00.0 Tachycardia, unspecified (principal) | CPT/HCPCS: 93010 ==

== ENCOUNTER → 2025-02-27 13:24 | Outpatient (BNV) | payer MEDICAID, SELFPAY | PROVIDERS: Emergency Provider Emergency Medicine; Visit Provider Radiology Diagnostic Radiology | DX: G50.1 Atypical facial pain (principal); R22.0 Localized swelling, mass and lump, head | CPT/HCPCS: 70491 ==

== ENCOUNTER 2025-02-28 19:52 | Emergency (ER) | payer MEDICAID, SELFPAY ==
[2025-02-28 19:56] VITALS: BP 135/70; PULSE 109; RESP 16; TEMP 36.9; O2SAT 98; BMI 33.6
--- NOTE | 2025-02-28 19:56 | ED_ITS ---
HPI - Dental/Oral General Chief complaint: Headache Stated complaint: Dental Pain/was here yesterday feels worse? Time Seen by Provider: 02/28/25 20:07 Source: patient Mode of arrival: ambulatory Limitations: no limitations History of Present Illness ED Provider: Diana Bell PA-C HPI Narrative: ? 3rd consecutive ED visit (previous visits on and Sunday). ? Molar extraction earlier this week; persistent pain since the procedure. ? After yesterday?s ED visit (received IV analgesics), patient developed a localized headache that has persisted without relief. ? Seen by dentist yesterday: extraction site reopened, stitched, medicated; attempted drainage yielded no pus. ? CT scan of jaw/face yesterday showed no abscess. ? Patient experienced trembling reaction after leaving the dentist, prompting EMS transport back to ED. ? Reports taking only partial doses of prescribed medications (took 4 tablets total of Tylenol/oxycodone combination every 8 hrs; taking antibiotics; has withheld two other prescribed pills due to dosing uncertainty). ? Pain currently rated ?strong?; localized headache predominates, with some residual tooth pain. Review of Systems: HEENT: Positive for persistent headache and mild residual dental pain. Neurologic: Reports prior episode of trembling after injection; no current tremor discussed. Related Data Previous Rx's ?Medication ?Instructions ?Recorded compression panty, 1x-2x #1 ea 09/30/23 naproxen 500 mg tablet 500 mg PO Q8-12H PRN pain (s maury 09/30/23 score 1-3) #20 tabs ibuprofen 600 mg tablet 600 mg PO Q6H PRN fever or p ain 12/06/23 #30 tabs zyxvlbs-qdylgtcivjsnm-ptiazwsc 250 1 tab PO Q4-6H PRN headache #10 02/16/25 mg-250 mg-65 mg tablet (Excedrin tabs Migraine) diphenhydramine HCl 25 mg tablet 50 mg (2 x 25 mg) PO Q6-8H PRN 02/16/25 (Benadryl Allergy) headache #10 tabs metoclopramide HCl 10 mg tablet 10 mg PO Q8H PRN heada jana #9 tabs 02/16/25 (Reglan) acetaminophen 500 mg capsule 1,000 mg (2 x 500 mg) PO Q8H PRN 02/26/25 fever or pain #14 caps clindamycin HCl 300 mg capsule 600 mg (2 x 300 mg) PO TID 8 days 02/26/25 (Cleocin HCl) #48 caps ibuprofen 400 mg tablet 400 mg PO Q6H PRN pain #14 t abs 02/26/25 oxycodone 5 mg tablet 5 mg PO Q6H PRN pain #10 tab s 02/26/25 Allergies Allergy/AdvReac Type Severity Reaction Status Date / Time No Known Allergies Allergy Verified 02/28/25 20:05 Review of Systems Review of Systems: Yes all other systems are reviewed and are negative PMFSH Past Medical History Attestation statement: The following information was validated with the patient. Source: old records reviewed, obtained from family and nursing notes reviewed Social History Social History Advance Directives: No Advance Directives Information Provided: No Do you have a plan to hurt others: No Plan Physical Exam Exam: Exam: General: Appears in no acute distress, appears well nourished body habitus is obese, appears stated age. No septic or ill-appearing. Vitals reviewed normal, PMH/Social and Surgical hx reviewed including allergies and current medications. - reviewed for prior visits here and read as it pertains to similar CC Head: Normocephalic, no obvious trauma or skin lesions noted. Eyes: EOMI ENMT: moist oral mucosa, uvula is midline no trismus, no facial swelling, no periapical abscess noted, TNs clear Neck: trachea midline, no lymphadenopathy Cardiovascular: peripheral perfusion normal, Regular heart rate Respiratory: no respiratory distress Abdomen: nondistended Extremities: warm and moving without difficulty Psych: Cooperative Neuro: Alert and oriented. Vital Signs: Vital Signs: Last Vital Signs Temp 98.5 F 02/28/25 20:42 Pulse 109 H 02/28/25 20:42 Resp 16 02/28/25 20:42 BP 135/70 02/28/25 20:42 Pulse Ox 98 02/28/25 20:42 O2 Del Method Room Air 02/28/25 20:42 BMI result Body Mass Index 33.6 Course Course Course Narrative: This is a RME preformed in triage by Diana Bell PA-C. Date: 02/28/25, time?757pm . Patient presents with dental pain, seen here last two days too. On clindamycin and oxy and tylenol. Had CT here no abscess. Pain still . Work UP:?none, will reinstruct on medications. Will defer full ROS and PE to treating provider. Patient will continued to be monitored in the interim. Medical Decision Making Medical Decision Making MDM Narrative: This patient presents with persistent headache and residual dental pain following a recent molar extraction, with three consecutive ED visits and evaluation by a dentist. [place] findings include no abscess on maxillofacial CT, no pus on attempted socket drainage, and mild ongoing socket discomfort. The clinical picture is most consistent with a tension-type headache, likely multifactorial in origin?contributing factors include inadequate scheduled analgesia, muscle strain from forward head posture, and residual post-operative discomfort. The management plan is based on these findings and includes scheduled multimodal analgesia (ibuprofen, acetaminophen, and oxycodone as prescribed), continuation of antibiotics, salt-water rinses for oral hygiene, and clear instructions for return precautions should symptoms worsen or new neurologic changes arise. Problem #1: Persistent Headache Assessment: Ongoing localized headache since yesterday, likely muscular/tension component exacerbated by forward head posture and undertreated pain. Plan: * Educated patient/caregiver that proper, scheduled dosing of prescribed ibuprofen, acetaminophen, and oxycodone is necessary to control pain and prevent breakthrough episodes. * Will provide written medication schedule. * Return to ED for neurologic changes or uncontrolled pain. Problem #2: Post-extraction Dental Pain Assessment: Mild ongoing socket discomfort; site reopened and medicated by dentist yesterday; no abscess on imaging. Plan: * Continue prescribed antibiotics as directed. * Salt-water rinses for oral hygiene and socket care. * Use scheduled analgesics as above. Differential Diagnosis Differential Diagnoses: The differential diagnosis associated with the presentation includes dental abscess dental abscess with sinus AOm/AOE Admission/Observation Consideration of admission/observation: Escalation of care including admission/observation considered Independent Historian Clinical information obtained from an independent historian. History obtained from or confirmed by: Spouse Prescription Management I considered prescription management with: Pain Medication and Antibiotic already has, rediscussed Chronic Conditions Patient?s care impacted by: Other Social Determinants Patient?s care significantly limited by Social Determinants of Health including: Other Social Determinant of Health Discharge Plan Discharge Clinical Impression: Phlegmon, Pain, dental Patient Disposition: Home, Self-Care Additional Instructions: Please take medications as prescribed. Take 600 mg of ibuprofen every 6 hrs as needed for pain and swelling. Take 1g of tylenol every 6-8 hours as needed for pain/fever. Take 600 mg (2 tablets) ever 8 hours for infection. Take 5 mg of oxycodone every 6 hrs as needed for moderate to severe pain. Salt water rinses, soft liquid diet. Cool compresses to face. Follow up with dentist. Return to the emergency department for worsening pain, fevers, or concerns. Por favor, tome los medicamentos seg?n lo recetado. [place] 600 mg de ibuprofeno cada 6 horas seg?n sea necesario para el dolor y la inflamaci?n. [place] 1 g de paracetamol cada 6-8 horas seg?n sea necesario para el dolor o la fiebre. [place] 600 mg (2 comprimidos) cada 8 horas para la infecci?n. [place] 5 mg de oxicodona cada 6 horas seg?n sea necesario para el dolor moderado a intenso. Enjuagues con agua salada, dieta l?quida blanda. Compresas fr?as en la isabella. Consulte con huang dentista. Regrese al servicio de urgencias si el dolor empeora, tiene fiebre o presenta cualquier otra preocupaci?n. Prescriptions: No Action ibuprofen 400 mg tablet 400 mg PO Q6H PRN (Reason: pain) Qty: 14 0RF clindamycin HCl [Cleocin HCl] 300 mg capsule 600 mg PO TID 8 Days Qty: 48 0RF oxycodone 5 mg tablet 5 mg PO Q6H PRN (Reason: pain) Qty: 10 0RF Rx Instructions: Partial Fill upon patient request. acetaminophen 500 mg capsule 1,000 mg PO Q8H PRN (Reason: fever or pain) Qty: 14 0RF naproxen 500 mg tablet 500 mg PO Q8-12H PRN (Reason: pain (scale score 1-3)) Qty: 20 0RF (DME) compression panty, 1x-2x Misc See Rx Instructions .Route Qty: 1 0RF Rx Instructions: As directed ibuprofen 600 mg tablet 600 mg PO Q6H PRN (Reason: fever or pain) Qty: 30 0RF metoclopramide HCl [Reglan] 10 mg tablet 10 mg PO Q8H PRN (Reason: headache) Qty: 9 0RF diphenhydramine HCl [Benadryl Allergy] 25 mg tablet 50 mg PO Q6-8H PRN (Reason: headache) Qty: 10 0RF cwwubtx-zaduofyirxtnc-ntvugkmc [Excedrin Migraine] 250-250-65 mg tablet 1 tab PO Q4-6H PRN (Reason: headache) Qty: 10 0RF Referrals: Mariam Fitch NP [Primary Care Provider, Internal Medicine] Interventions: ED Discharge Assessment Last Done: 02/28/25 20:42 Discharge Date/Time: 02/28/25 20:43 Print Language: Danish
--- OUTSIDE RECORDS SUMMARY | 2025-02-28 20:15 | XMS_ITS | Clinical Summary ---
Author Organization [employer] [facility] Address [address] [place] [address] Care Team Providers Care Contracts Attorney Name Role Phone Unavailable Primary Care Provider Unavailabl e Encounters Date Type Department Care Team Description 02/16/2025 Population Health Risk Score [facility] ([facility]) Department [address] [address] [place] [address] Provider, Population Health Generic from [...] Phone Billing Address Personal/Family Self 1990 [address] [address] [facility]
[2025-02-28 20:42] VITALS: BP 135/70; PULSE 109; RESP 16; TEMP 36.9; O2SAT 98
== END 2025-02-28 20:43 | disposition home or self-care (01) ==
PROVIDERS: Emergency Provider Emergency Medicine Emergency Medical Services
DX: K08.89 Other specified disorders of teeth and supporting structures (principal); K04.7 Periapical abscess without sinus; R51.9 Headache, unspecified
CPT/HCPCS: 99282; 99283